=== PATIENT | female | born 1985 | race Caucasian/White ===

== ENCOUNTER → 2017-07-13 | Outpatient (CLI) | payer MEDICAID, SELFPAY | PROVIDERS: Visit Provider Internal Medicine | DX: M06.9 Rheumatoid arthritis, unspecified (principal); Z51.81 Encounter for therapeutic drug level monitoring | CPT/HCPCS: 36415; 80053; 85025; 85651 ==

== ENCOUNTER 2017-08-06 14:04 | Emergency (ER) | payer MEDICAID, SELFPAY | END 2017-08-06 14:28 | disposition left against medical advice (07) | PROVIDERS: Emergency Provider Nurse Practitioner Family; Family Provider Emergency Medicine; PCP Physician Assistant | DX: Z53.29 Procedure and treatment not carried out because of patient's decision for other reasons (principal) ==

== ENCOUNTER → 2017-08-25 12:31 | Outpatient (CLI) | payer MEDICAID, SELFPAY ==
[2017-08-25 15:52] LABS: Alanine Aminotransferase 56 U/L (12-78); Albumin Level 3.4 gm/dL (3.4-5.0); Albumin/Globulin Ratio 0.9 (1.1-1.8); Alkaline Phosphatase 107 U/L (46-116); Anion Gap 10.2 mEq/L (5-15); Aspartate Amino Transferase 31 U/L (15-37); Bilirubin,Total 0.2 mg/dL (0.2-1.0); Blood Urea Nitrogen 7 mg/dL (7-18); Calcium 8.5 mg/dL (8.5-10.1); Carbon Dioxide 28 mmol/L (21.0-32.0); Chloride 107 mmol/L (98-107); Creatinine,Serum 0.71 mg/dL (0.55-1.02); Estimated Glomerular Filt Rate 95 ml/min (>60); GFR (African American) 115 ML/MIN (>60); Globulin 3.6 gm/dl (1.3-3.2); Glucose 94 mg/dL (74-106); Potassium 4.2 mmoL/L (3.5-5.1); Sodium 141 mmol/L (136-145)
== END ==
PROVIDERS: PCP Physician Assistant; Visit Provider Internal Medicine
DX: Z79.899 Other long term (current) drug therapy (principal)
CPT/HCPCS: 36415; 80053

== ENCOUNTER → 2017-11-02 13:22 | Outpatient (REF) | payer MEDICAID, SELFPAY ==
[2017-11-02 14:18] LABS: Alanine Aminotransferase 29 U/L (12-78); Albumin Level 3.4 gm/dL (3.4-5.0); Albumin/Globulin Ratio 0.9 (1.1-1.8); Alkaline Phosphatase 116 U/L (46-116); Anion Gap 11.2 mEq/L (5-15); Aspartate Amino Transferase 16 U/L (15-37); Bilirubin,Total 0.3 mg/dL (0.2-1.0); Blood Urea Nitrogen 5 mg/dL (7-18); Calcium 8.7 mg/dL (8.5-10.1); Carbon Dioxide 28 mmol/L (21.0-32.0); Chloride 106 mmol/L (98-107); Chol/HDL Ratio 3.8 (1-3.5); Cholesterol 134 mg/dL (140-200); Estimated Glomerular Filt Rate 97 ml/min (>60); GFR (African American) 117 ML/MIN (>60); Globulin 3.7 gm/dl (1.3-3.2); Glucose 92 mg/dL (74-106); HDL Cholesterol 35 mg/dL (29-89); LDL Cholesterol 65 mg/dL (0-130); Potassium 4.2 mmoL/L (3.5-5.1); Sodium 141 mmol/L (136-145); T4 (Thyroxine) 7.7 ug/dl (4.7-13.3); Thyroid Stimulating Hormone 2.01 uIU/ml (0.358-3.740); Total Protein,Serum 7.1 gm/dL (6.4-8.2); Triglycerides 168 mg/dL (30-200); VLDL Cholesterol 34 mg/dL (0-40)
[2017-11-02 14:19] LABS: Basophils # 0.1 K/mm3 (0-0.2); Basophils % 0.6 % (0.1-2.0); Eosinophils # 0.2 K/mm3 (0.0-0.4); Hematocrit 39.6 % (37.0-47.0); Hemoglobin 12.9 g/dL (12.2-16.2); Lymphocytes % 25.9 K/mm3 (10-50); Mean Corpuscular HGB Conc 32.5 g/dL (31.8-35.4); Mean Corpuscular Hemoglobin 28.5 pg (27.0-31.2); Mean Corpuscular Volume 87.7 fl (81-99); Monocytes # 0.4 K/mm3 (0.1-1.0); Monocytes % 5.3 % (1.7-9.3); Neutrophils # 4.9 K/mm3 (1.8-7.8); Neutrophils % 65.2 % (37.0-80.0); Platelet Count 352 K/mm3 (142-424); Red Blood Count 4.52 M/mm3 (4.20-5.40); Red Cell Distribution Width 13.7 % (11.5-17.5); White Blood Count 7.6 K/mm3 (4.8-10.8)
[2017-11-03 11:04] LABS: Vitamin D 25 Hydroxy 29.3 ng/mL (30.0-100.0)
== END ==
LOC: LAB 13:22
PROVIDERS: Visit Provider Physician Assistant
DX: E03.9 Hypothyroidism, unspecified (principal)
CPT/HCPCS: 80053; 80061; 82652; 84436; 84443; 85025

== ENCOUNTER → 2017-12-20 13:55 | Outpatient (CLI) | payer MEDICAID, SELFPAY ==
[2017-12-20 14:21] LABS: Basophils # 0.1 K/mm3 (0-0.2); Basophils % 0.5 % (0.1-2.0); Eosinophils # 0.3 K/mm3 (0.0-0.4); Eosinophils % 2.3 % (0.1-12.0); Hematocrit 43.1 % (37.0-47.0); Hemoglobin 13.3 g/dL (12.2-16.2); Lymphocytes # 2.1 K/mm3 (0.7-4.5); Lymphocytes % 18.9 K/mm3 (10-50); Mean Corpuscular HGB Conc 30.8 g/dL (31.8-35.4); Mean Corpuscular Hemoglobin 27.1 pg (27.0-31.2); Mean Platelet Volume 7.2 fl (7.4-10.4); Monocytes # 0.5 K/mm3 (0.1-1.0); Monocytes % 4.5 % (1.7-9.3); Neutrophils % 73.8 % (37.0-80.0); Platelet Count 405 K/mm3 (142-424); Red Cell Distribution Width 13.8 % (11.5-17.5); White Blood Count 10.9 K/mm3 (4.8-10.8)
[2017-12-20 15:02] LABS: Erythrocyte Sedimentation Rate 20 mm/hr (0-20)
[2017-12-20 15:12] LABS: Alanine Aminotransferase 27 U/L (12-78); Albumin Level 3.2 gm/dL (3.4-5.0); Albumin/Globulin Ratio 0.8 (1.1-1.8); Alkaline Phosphatase 106 U/L (46-116); Anion Gap 11.6 mEq/L (5-15); Aspartate Amino Transferase 8 U/L (15-37); Bilirubin,Total 0.2 mg/dL (0.2-1.0); Blood Urea Nitrogen 7 mg/dL (7-18); C-Reactive Protein 1.2 mg/L (0.0-0.9); Calcium 8.6 mg/dL (8.5-10.1); Carbon Dioxide 28 mmol/L (21.0-32.0); Chloride 106 mmol/L (98-107); Estimated Glomerular Filt Rate 96 ml/min (>60); GFR (African American) 117 ML/MIN (>60); Globulin 3.9 gm/dl (1.3-3.2); Glucose 85 mg/dL (74-106); Potassium 4.6 mmoL/L (3.5-5.1); Sodium 141 mmol/L (136-145); Total Protein,Serum 7.1 gm/dL (6.4-8.2)
== END ==
PROVIDERS: Visit Provider Internal Medicine
DX: M54.9 Dorsalgia, unspecified (principal)
CPT/HCPCS: 36415; 80053; 85025; 85651; 86140

== ENCOUNTER → 2018-07-12 18:08 | Outpatient (CLI) | payer MEDICAID, SELFPAY ==
[2018-07-12 20:21] LABS: Thyroid Stimulating Hormone 1.57 uIU/ml (0.358-3.740)
[2018-07-18 20:14] LABS: 1,25-Dihydroxy, Vitamin D-2 <10 pg/mL (.)
[2018-07-19 14:45] LABS: 1,25 Dihydroxy Vitamin D 13 pg/mL (.); 1,25-Dihydroxy, Vitamin D-3 <10 pg/mL (.)
== END ==
PROVIDERS: Visit Provider Nurse Practitioner Family
DX: E55.9 Vitamin D deficiency, unspecified (principal); E03.9 Hypothyroidism, unspecified
CPT/HCPCS: 82652; 84443

== ENCOUNTER → 2019-12-06 15:45 | Outpatient (CLI) | payer MEDICAID, SELFPAY ==
[2019-12-06 16:36] LABS: Basophils # 0.1 K/mm3 (0-0.2); Basophils % 0.6 % (0.1-2.0); Eosinophils # 0.2 K/mm3 (0.0-0.4); Eosinophils % 1.5 % (0.1-12.0); Hematocrit 43.1 % (37.0-47.0); Hemoglobin 14.3 g/dL (12.2-16.2); Lymphocytes # 1.4 K/mm3 (0.7-4.5); Lymphocytes % 9.3 % (10-50); Mean Corpuscular HGB Conc 33.3 g/dL (31.8-35.4); Mean Corpuscular Hemoglobin 28.7 pg (27.0-31.2); Mean Corpuscular Volume 86.3 fl (81-99); Mean Platelet Volume 7.6 fl (7.4-10.4); Monocytes # 0.5 K/mm3 (0.1-1.0); Monocytes % 3.6 % (1.7-9.3); Neutrophils # 12.7 K/mm3 (1.8-7.8); Platelet Count 393 K/mm3 (142-424); Red Blood Count 4.99 M/mm3 (4.20-5.40); Red Cell Distribution Width 13.6 % (11.5-17.5); White Blood Count 14.9 K/mm3 (4.8-10.8)
[2019-12-06 16:38] LABS: MANUAL DIFFERENTIAL MANUAL DIFFERENTIAL (MANUAL DIFF)
[2019-12-06 17:21] LABS: Eosinophils % 1 % (0-3); Lymphocytes % 11 % (10-50); Monocytes % 2 % (2-9); Neutrophils % 84 % (42-76); Platelet Estimate Normal; RBC Morphology Normal; Total Cells Counted 100
[2019-12-06 18:20] LABS: Alanine Aminotransferase 25 U/L (12-78); Albumin Level 4.3 g/dl (3.5-5.0); Albumin/Globulin Ratio 1.3 (1.1-1.8); Alkaline Phosphatase 111 U/L (38-126); Anion Gap 10.2 mEq/L (5-15); Aspartate Amino Transferase 35 U/L (14-36); Bilirubin,Total 0.3 mg/dl (0.2-1.3); Blood Urea Nitrogen 7 mg/dl (7-17); Calcium 9.5 mg/dl (8.4-10.2); Carbon Dioxide 27 mmol/L (22.0-30.0); Chloride 104 mmol/L (98-107); Estimated Glomerular Filt Rate 95 ml/min (>60); GFR (African American) 115 ML/MIN (>60); Globulin 3.3 g/dL (1.3-3.2); Glucose 95 mg/dl (74-100); Potassium 4.2 mmoL/L (3.5-5.1); Sodium 137 mmol/L (136-145); Total Protein,Serum 7.6 g/dl (6.3-8.2)
== END ==
PROVIDERS: Visit Provider Internal Medicine
DX: Z79.899 Other long term (current) drug therapy (principal)
CPT/HCPCS: 36415; 80053; 85007; 85025

== ENCOUNTER 2020-03-04 16:25 | Emergency (ER) | payer MEDICAID, SELFPAY ==
--- NOTE | 2020-03-04 17:51 | HMH.EDUTC ---
[facility] Disposition Clinical Impression: Bronchitis, Viral syndrome Disposition: Home, Self-Care Condition on Discharge: Good Instructions: DI for Viral Syndrome, Preventing the Spread of Coronavirus Discharge Instructions Additional Instructions: Drink plenty of fluids. Take tylenol or ibuprofen for pain or fever. Take the medications as directed. Follow up with your regular doctor. GO TO THE ER FOR ANY WORSENING SYMPTOMS FOLLOW THE DIRECTIONS ON THE COVID-19 HAND OUT THAT WE GAVE YOU REGARDING SELF-ISOLATION UNTIL YOU KNOW YOUR COVID-19 RESULTS Prescriptions: Brompheniramine/Pseudoephed/Dm [Bromfed Dm Cough Syrup] 5 ml PO Q6HP PRN #240 syrup PRN Reason: Cough Transmission Status: Received by [facility] Azithromycin [Z-Angelito 250mg Tab*] 250 mg PO UD DOSE PK #6 tab Transmission Status: Received by [facility] Referrals: Sea Mascorro MD [Primary Care Provider] - Forms: Work/School Release Time of Disposition: 18:14 Medical Decision Making - Medical Records Medical records reviewed: No: I reviewed the patient's medical records. - Dwayne Inquiry Pt receiving controlled substance: No Vital Signs: 03/04/20 17:54 03/04/20 18:21 Temperature 98.2 F 98.2 F Temperature Source Oral Pulse Rate 75 Pulse Rate [Right Brachial] 75 Respiratory Rate 20 20 Blood Pressure 103/59 L Blood Pressure [Right Arm] 103/59 L Blood Pressure Mean [Right Arm] 73 Blood Pressure Source [Right Arm] Automatic Cuff Blood Pressure Position [Right Arm] Sitting 02 Sat by Pulse Oximetry 99 Oxygen Delivery Method Room Air - Lab Data Lab results reviewed: Yes: I reviewed the patient's lab results. [facility] HPI - General Stated complaint: covid symptoms Time Seen by Provider: 03/04/20 17:51 - History of Present Illness Provider Complaint: She c/o cough and congestion for the past 2 days. - Related Data Home Medications Medication Instructions Recorded Confirmed folic acid 1 mg tablet 1 mg PO DAILY tab 11/02/17 07/12/18 hydroxychloroquine 200 mg tablet 200 mg PO DAILY tab 11/02/17 07/12/18 methotrexate sodium 20 mg solution 2.5 mg .ROUTE QWEEK 11/02/17 07/12/18 for injection cetirizine 10 mg tablet PO 30 Days #30 tab 07/12/18 07/12/18 fluticasone propionate 50 INTRANASAL 30 Days #16 g 07/12/18 07/12/18 mcg/actuation nasal spray,suspension montelukast 10 mg tablet PO 30 Days #30 tab 07/12/18 07/12/18 Previous Rx's Medication Instructions Recorded cholecalciferol (vitamin D3) 25 1,000 unit PO DAILY #90 cap 07/23/18 mcg (1,000 unit) capsule ergocalciferol (vitamin D2) 1,250 50,000 unit PO QWEEK 90 Days #12 05/28/19 mcg (50,000 unit) capsule cap levothyroxine 25 mcg tablet 25 mcg PO DAILY #90 tab 02/07/20 Azithromycin [Z-Angelito 250mg Tab*] 250 mg PO UD DOSE PK #6 tab 03/04/20 Brompheniramine/Pseudoephed/Dm 5 ml PO Q6HP PRN #240 syrup 03/04/20 [Bromfed Dm Cough Syrup] Allergies Allergy/AdvReac Type Severity Reaction Status Date / Time codeine [CODEINE] Allergy Intermediate I-RASH Verified 07/12/18 13:41 penicillin G [PENICILLIN G] Allergy Intermediate I-HIVES Verified 07/12/18 13:41 [facility] History - Hepatitis A Screen Attestation statement:: This patient has been screened for Hepatitis A risk factors. I have reviewed the patient's past medical history: Yes Other Medical History: Reports: Arthritis, Hypothyroidism, Sinus Problems, Other Comment: THYROID ISSUES,SCOLIOSIS Other Surgeries: Yes: , Tubal Ligation Amputation: No Fractures: No - Social History Smoking Status: Former smoker Tobacco Type: cigarettes Alcohol Intake: never Substance Use Type: denies use Occupational Status: unemployed Housing: apartment Household Members: children, spouse Family Hx:: Cancer, Heart Attack, Diabetes ROS Obtained: Yes All systems reviewed & no additional complaints - Constitutional Constitutional: Reports chills, Reports fever(s), Reports poor ap
[2020-03-04 17:54] VITALS: BP 103/59; PULSE 75; RESP 20; TEMP 36.8; O2SAT 99; BMI 23.3
[2020-03-04 18:21] VITALS: BP 103/59; PULSE 75; RESP 20; TEMP 36.8; O2SAT 99
== END 2020-03-04 18:23 | disposition home or self-care (01) ==
PROVIDERS: Emergency Provider Nurse Practitioner Family; PCP Emergency Medicine
DX: J20.9 Acute bronchitis, unspecified (principal); B34.9 Viral infection, unspecified; Z20.828 Contact with and (suspected) exposure to other viral communicable diseases; E03.9 Hypothyroidism, unspecified; Z79.899 Other long term (current) drug therapy; Z87.891 Personal history of nicotine dependence; Z88.0 Allergy status to penicillin; Z88.5 Allergy status to narcotic agent
CPT/HCPCS: 99201; U0003

== ENCOUNTER → 2020-04-23 18:04 | Outpatient (CLI) | payer MEDICAID, SELFPAY ==
--- NOTE | 2020-04-23 18:15 | PC.NURSE ---
PATIENT STATES SHE TAKES HUMIRA. SPOKE WITH CORIE BRITO AT THIS TIME WHO VERIFIED THAT IT IS OK TO GIVE PATIENT TB SKIN TEST.
== END ==
PROVIDERS: PCP Physician Assistant; Visit Provider Nurse Practitioner
DX: Z11.1 Encounter for screening for respiratory tuberculosis (principal)

== ENCOUNTER 2020-06-07 14:19 | Emergency (ER) | payer MEDICAID, SELFPAY ==
[2020-06-07 14:20] VITALS: BP 101/72; PULSE 61; RESP 21; TEMP 36.8; O2SAT 99; BMI 30.2
--- NOTE | 2020-06-07 14:41 | HMH.EDUTC ---
[facility] Disposition Clinical Impression: Otitis media Qualifiers: Otitis media type: suppurative Chronicity: acute Laterality: bilateral Recurrence: non-recurrent Spontaneous tympanic membrane rupture: without spontaneous rupture Qualified Code(s): H66.003 - Acute suppurative otitis media without spontaneous rupture of ear drum, bilateral Disposition: Home, Self-Care Condition on Discharge: Good Instructions: How to Instill Ear Drops, Middle Ear Infection Additional Instructions: Drink plenty of fluids. Take tylenol or ibuprofen for pain or fever. Take the medications as directed. Follow up with your regular doctor for a recheck of your ears in 3 days. GO TO THE ER FOR ANY WORSENING SYMPTOMS Prescriptions: Neomycin/Polymyxin B Sulf/Hc [Npjqmqzd-Lgvjvgfno-MA Otic Susp 10mL] 3 drops EAR-BOTH TID 7 Days #1 bottle Transmission Status: Received by [facility] Azithromycin [Z-Angelito 250mg Tab*] 250 mg PO UD DOSE PK #6 tab Transmission Status: Received by [facility] Referrals: Ilana Ireland PA [Primary Care Provider] - Time of Disposition: 14:44 Medical Decision Making - Medical Records Medical records reviewed: No: I reviewed the patient's medical records. - Dwayne Inquiry Pt receiving controlled substance: No Vital Signs: 06/07/20 14:20 06/07/20 14:46 Temperature 98.3 F 98.3 F Temperature Source Oral Pulse Rate 61 Pulse Rate [Right Brachial] 61 Respiratory Rate 21 21 Blood Pressure 101/72 L Blood Pressure [Right Arm] 101/72 L Blood Pressure Mean [Right Arm] 81 Blood Pressure Source [Right Arm] Automatic Cuff Blood Pressure Position [Right Arm] Sitting 02 Sat by Pulse Oximetry 99 Oxygen Delivery Method Room Air [facility] HPI - General Stated complaint: ear pain, dizzy Time Seen by Provider: 06/07/20 14:41 Mode of Arrival: Ambulatory Source of Information: Patient Limitations: No Limitations Description of Symptoms (Recalled from Triage Doc. by RN): PATIENT C/O LEFT EAR PAIN, HEADACHE, AND DIZZINESS X 2 WEEKS HEENT Symptoms (Recalled from RN notes): Yes Resp Symptoms (Recalled from RN notes): No Skin Symptoms (Recalled from RN notes): No MS Symptoms (Recalled from RN notes): No Functional Status (Recalled from RN notes): WNL - History of Present Illness Provider Complaint: She c/o bilateral ear pain and fullness and sinus congestion. She has been having these symptoms for the past 2 weeks on and off. She denies fever, chills, body aches, decreased hearing and body aches. - Related Data Home Medications Medication Instructions Recorded Confirmed folic acid 1 mg tablet 1 mg PO DAILY tab 11/02/17 07/12/18 hydroxychloroquine 200 mg tablet 200 mg PO DAILY tab 11/02/17 07/12/18 methotrexate sodium 20 mg solution 2.5 mg .ROUTE QWEEK 11/02/17 07/12/18 for injection cetirizine 10 mg tablet PO 30 Days #30 tab 07/12/18 07/12/18 fluticasone propionate 50 INTRANASAL 30 Days #16 g 07/12/18 07/12/18 mcg/actuation nasal spray,suspension montelukast 10 mg tablet PO 30 Days #30 tab 07/12/18 07/12/18 Previous Rx's Medication Instructions Recorded cholecalciferol (vitamin D3) 25 1,000 unit PO DAILY #90 cap 07/23/18 mcg (1,000 unit) capsule ergocalciferol (vitamin D2) 1,250 50,000 unit PO QWEEK 90 Days #12 05/28/19 mcg (50,000 unit) capsule cap levothyroxine 25 mcg tablet 25 mcg PO DAILY #90 tab 02/07/20 Azithromycin [Z-Angelito 250mg Tab*] 250 mg PO UD DOSE PK #6 tab 03/04/20 Brompheniramine/Pseudoephed/Dm 5 ml PO Q6HP PRN #240 syrup 03/04/20 [Bromfed Dm Cough Syrup] Azithromycin [Z-Angelito 250mg Tab*] 250 mg PO UD DOSE PK #6 tab 06/07/20 Neomycin/Polymyxin B Sulf/Hc 3 drops EAR-BOTH TID 7 Days #1 06/07/20 [Pwrxxrex-Wyzlkdchc-HM Otic Susp bottle 10mL] Allergies Allergy/AdvReac Type Severity Reaction Status Date / Time codeine [CODEINE] Allergy Intermediate I-RASH Verified 07/12/18 13:41 penicillin G [PENICILLIN G] Allergy Intermediate I-HIVES Verifie
[2020-06-07 14:46] VITALS: BP 101/72; PULSE 61; RESP 21; TEMP 36.8; O2SAT 99
== END 2020-06-07 14:50 | disposition home or self-care (01) ==
PROVIDERS: Emergency Provider Nurse Practitioner Family; PCP Physician Assistant
DX: H66.003 Acute suppurative otitis media without spontaneous rupture of ear drum, bilateral (principal); E03.9 Hypothyroidism, unspecified; Z79.899 Other long term (current) drug therapy; Z88.0 Allergy status to penicillin; Z88.5 Allergy status to narcotic agent
CPT/HCPCS: 99201

== ENCOUNTER 2020-06-14 10:29 | Emergency (ER) | payer MEDICAID, SELFPAY ==
[2020-06-14 11:06] VITALS: BP 102/50; PULSE 61; RESP 18; TEMP 36.7; O2SAT 98; BMI 30.2
--- NOTE | 2020-06-14 11:23 | HMH.EDUTC ---
[facility] [place] [facility] Disposition Clinical Impression: Impacted cerumen of both ears Disposition: Home, Self-Care Condition on Discharge: Good Instructions: DI for Cerumen Impaction Prescriptions: Carbamide Peroxide [Debrox] 5 drp OT TID 10 Days #1 drops Transmission Status: Pending to [facility] Referrals: Ilana Ireland PA [Primary Care Provider] - Forms: Work/School Release Time of Disposition: 11:28 Medical Decision Making - Dwayne Inquiry Pt receiving controlled substance: No Vital Signs: 06/14/20 11:06 Temperature 98.0 F Temperature Source Oral Pulse Rate [Radial] 61 Respiratory Rate 18 Blood Pressure [Right Arm] 102/50 L Blood Pressure Mean [Right Arm] 67 Blood Pressure Source [Right Arm] Automatic Cuff Blood Pressure Position [Right Arm] Sitting 02 Sat by Pulse Oximetry 98 Oxygen Delivery Method Room Air [facility] [place] HPI - General Stated complaint: Ears stopped up Time Seen by Provider: 06/14/20 11:26 Mode of Arrival: Ambulatory Source of Information: Patient Limitations: No Limitations Description of Symptoms (Recalled from Triage Doc. by RN): both ears are stopped up. cant hear. HEENT Symptoms (Recalled from RN notes): Yes Resp Symptoms (Recalled from RN notes): No Skin Symptoms (Recalled from RN notes): No MS Symptoms (Recalled from RN notes): No Functional Status (Recalled from RN notes): wnl - History of Present Illness Provider Complaint: Left ear stopped up and can't hear X 5 days. No right ear is also stopped up. Cannot hear. No fever. Onset (ago): day(s) (5) Relieving factors: none Exacerbating factors: none Treatments prior to arrival: none - Related Data Home Medications Medication Instructions Recorded Confirmed folic acid 1 mg tablet 1 mg PO DAILY tab 11/02/17 07/12/18 hydroxychloroquine 200 mg tablet 200 mg PO DAILY tab 11/02/17 07/12/18 methotrexate sodium 20 mg solution 2.5 mg .ROUTE QWEEK 11/02/17 07/12/18 for injection cetirizine 10 mg tablet PO 30 Days #30 tab 07/12/18 07/12/18 fluticasone propionate 50 INTRANASAL 30 Days #16 g 07/12/18 07/12/18 mcg/actuation nasal spray,suspension montelukast 10 mg tablet PO 30 Days #30 tab 07/12/18 07/12/18 Previous Rx's Medication Instructions Recorded cholecalciferol (vitamin D3) 25 1,000 unit PO DAILY #90 cap 07/23/18 mcg (1,000 unit) capsule ergocalciferol (vitamin D2) 1,250 50,000 unit PO QWEEK 90 Days #12 05/28/19 mcg (50,000 unit) capsule cap levothyroxine 25 mcg tablet 25 mcg PO DAILY #90 tab 02/07/20 Azithromycin [Z-Angelito 250mg Tab*] 250 mg PO UD DOSE PK #6 tab 03/04/20 Brompheniramine/Pseudoephed/Dm 5 ml PO Q6HP PRN #240 syrup 03/04/20 [Bromfed Dm Cough Syrup] Azithromycin [Z-Angelito 250mg Tab*] 250 mg PO UD DOSE PK #6 tab 06/07/20 Neomycin/Polymyxin B Sulf/Hc 3 drops EAR-BOTH TID 7 Days #1 06/07/20 [Ahgiwfnm-Ttdjnvunm-QF Otic Susp bottle 10mL] Carbamide Peroxide [Debrox] 5 drp OT TID 10 Days #1 drops 06/14/20 Allergies Allergy/AdvReac Type Severity Reaction Status Date / Time codeine [CODEINE] Allergy Intermediate I-RASH Verified 07/12/18 13:41 penicillin G [PENICILLIN G] Allergy Intermediate I-HIVES Verified 07/12/18 13:41 - Worker's Comp Is this a Worker's Comp case?: No [facility] History - Hepatitis A Screen Drug use history?: No High risk sexual behaviors?: No History of sexually transmitted infection?: No Currently employed?: No Childcare worker?: No Do you have indoor plumbing?: Yes Do you have electricity?: Yes Attestation statement:: This patient has been screened for Hepatitis A risk factors. I have reviewed the patient's past medical history: Yes Other Medical History: Reports: Arthritis, Hypothyroidism, Sinus Problems, Other Comment: THYROID ISSUES,SCOLIOSIS Other Surgeries: Yes: , Tubal Ligation Amputation: No Fractures: No - Social History Smoking Status: Former smoker Tobacco Type: cigarettes Alcohol Intake: never Substance Use Type: denies use Occup
[2020-06-14 12:05] VITALS: BP 102/50; PULSE 61; RESP 18; TEMP 36.7; O2SAT 98
== END 2020-06-14 12:06 | disposition home or self-care (01) ==
PROVIDERS: Emergency Provider Physician Assistant; PCP Physician Assistant
DX: E03.9 Hypothyroidism, unspecified; Z88.0 Allergy status to penicillin; Z88.5 Allergy status to narcotic agent; Z87.891 Personal history of nicotine dependence
CPT/HCPCS: 99201

== ENCOUNTER → 2020-08-24 17:49 | Outpatient (CLI) | payer MEDICAID, SELFPAY ==
[2020-08-24 18:07] LABS: Basophils # 0.1 K/mm3 (0-0.2); Basophils % 0.4 % (0.1-2.0); Eosinophils # 0.3 K/mm3 (0.0-0.4); Eosinophils % 2.4 % (0.1-12.0); Hematocrit 42.9 % (37.0-47.0); Lymphocytes # 2.2 K/mm3 (0.7-4.5); Lymphocytes % 19.6 % (10-50); Mean Corpuscular HGB Conc 32.5 g/dL (31.8-35.4); Mean Corpuscular Hemoglobin 28.7 pg (27.0-31.2); Mean Corpuscular Volume 88.3 fl (81-99); Mean Platelet Volume 7.8 fl (7.4-10.4); Monocytes # 0.6 K/mm3 (0.1-1.0); Monocytes % 5.3 % (1.7-9.3); Neutrophils % 72.4 % (37.0-80.0); Platelet Count 353 K/mm3 (142-424); Red Blood Count 4.86 M/mm3 (4.20-5.40); Red Cell Distribution Width 12.6 % (11.5-17.5)
[2020-08-24 19:09] LABS: Alanine Aminotransferase 23 U/L (12-78); Albumin Level 4.3 g/dl (3.5-5.0); Albumin/Globulin Ratio 1.2 (1.1-1.8); Alkaline Phosphatase 88 U/L (38-126); Anion Gap 11.1 mEq/L (5-15); Aspartate Amino Transferase 24 U/L (14-36); Bilirubin,Total 0.3 mg/dl (0.2-1.3); Blood Urea Nitrogen 8 mg/dl (7-17); Calcium 9.5 mg/dl (8.4-10.2); Carbon Dioxide 29 mmol/L (22.0-30.0); Chloride 103 mmol/L (98-107); Estimated Glomerular Filt Rate 95 ml/min (>60); GFR (African American) 115 ML/MIN (>60); Globulin 3.6 g/dL (1.3-3.2); Glucose 94 mg/dl (74-100); Potassium 4.1 mmoL/L (3.5-5.1); Sodium 139 mmol/L (136-145); Total Protein,Serum 7.9 g/dl (6.3-8.2)
[2020-08-24 19:15] LABS: C-Reactive Protein 11.9 mg/L (0-4)
[2020-08-24 19:20] LABS: Erythrocyte Sedimentation Rate 15 mm/hr (0-20)
== END ==
PROVIDERS: Visit Provider Nurse Practitioner Family
DX: M06.9 Rheumatoid arthritis, unspecified (principal)
CPT/HCPCS: 36415; 80053; 85025; 85651; 86140

== ENCOUNTER 2021-01-25 18:08 | Emergency (ER) | payer MEDICAID, SELFPAY ==
[2021-01-25 18:10] VITALS: BP 109/71; PULSE 67; RESP 18; TEMP 36.9; O2SAT 100; BMI 31.4
--- NOTE | 2021-01-25 19:24 | HMH.EDUTC ---
[facility] [place] Disposition Clinical Impression: Sinusitis Qualifiers: Sinusitis location: unspecified location Chronicity: acute Recurrence: non-recurrent Qualified Code(s): J01.90 - Acute sinusitis, unspecified Disposition: Home, Self-Care Condition on Discharge: Good Instructions: DI for Sinusitis Additional Instructions: Drink plenty of fluids. Take tylenol or ibuprofen for pain or fever. Take the medications as directed. Follow up with your regular doctor. GO TO THE ER FOR ANY WORSENING SYMPTOMS Prescriptions: methylPREDNISolone [Medrol] 4 mg PO DIRECTED 6 Days #21 tab.ds.pk Transmission Status: Received by [facility] Benzonatate [Tessalon Perle 100mg Cap] 100 mg PO TIDP PRN #30 cap PRN Reason: Cough Transmission Status: Received by [facility] Azithromycin [Z-Angelito 250mg Tab*] 250 mg PO UD DOSE PK #6 tab Transmission Status: Received by [facility] Referrals: Ilana Ireland PA [Primary Care Provider] - Time of Disposition: 19:26 Medical Decision Making - Medical Records Medical records reviewed: No: I reviewed the patient's medical records. - Dwayne Inquiry Pt receiving controlled substance: No Vital Signs: 01/25/21 18:10 01/25/21 19:29 Temperature 98.5 F 98.5 F Temperature Source Oral Pulse Rate 67 Pulse Rate [Right Brachial] 67 Respiratory Rate 18 18 Blood Pressure 109/71 L Blood Pressure [Right Arm] 109/71 L Blood Pressure Mean [Right Arm] 83 Blood Pressure Source [Right Arm] Automatic Cuff Blood Pressure Position [Right Arm] Sitting 02 Sat by Pulse Oximetry 100 Oxygen Delivery Method Room Air [facility] [place] HPI - General Stated complaint: HEAD CONGESTION Time Seen by Provider: 01/25/21 18:20 Mode of Arrival: Ambulatory Source of Information: Patient Limitations: No Limitations Description of Symptoms (Recalled from Triage Doc. by RN): PATIENT C/O SINUS PRESSURE, CONGESTION, AND LEFT EAR PAIN X 3 DAYS HEENT Symptoms (Recalled from RN notes): Yes Resp Symptoms (Recalled from RN notes): No Skin Symptoms (Recalled from RN notes): No MS Symptoms (Recalled from RN notes): No Functional Status (Recalled from RN notes): WNL - History of Present Illness Provider Complaint: She c/o sinus pressure and sinus congestion for the past days. - Related Data Home Medications Medication Instructions Recorded Confirmed folic acid 1 mg tablet 1 mg PO DAILY tab 11/02/17 07/12/18 hydroxychloroquine 200 mg tablet 200 mg PO DAILY tab 11/02/17 07/12/18 methotrexate sodium 20 mg solution 2.5 mg .ROUTE QWEEK 11/02/17 07/12/18 for injection cetirizine 10 mg tablet PO 30 Days #30 tab 07/12/18 07/12/18 fluticasone propionate 50 INTRANASAL 30 Days #16 g 07/12/18 07/12/18 mcg/actuation nasal spray,suspension montelukast 10 mg tablet PO 30 Days #30 tab 07/12/18 07/12/18 Previous Rx's Medication Instructions Recorded cholecalciferol (vitamin D3) 25 1,000 unit PO DAILY #90 cap 07/23/18 mcg (1,000 unit) capsule ergocalciferol (vitamin D2) 1,250 50,000 unit PO QWEEK 90 Days #12 05/28/19 mcg (50,000 unit) capsule cap levothyroxine 25 mcg tablet 25 mcg PO DAILY #90 tab 02/07/20 Azithromycin [Z-Angelito 250mg Tab*] 250 mg PO UD DOSE PK #6 tab 03/04/20 Brompheniramine/Pseudoephed/Dm 5 ml PO Q6HP PRN #240 syrup 03/04/20 [Bromfed Dm Cough Syrup] Azithromycin [Z-Angelito 250mg Tab*] 250 mg PO UD DOSE PK #6 tab 06/07/20 Neomycin/Polymyxin B Sulf/Hc 3 drops EAR-BOTH TID 7 Days #1 06/07/20 [Bcxmayhq-Pcpthdizl-ES Otic Susp bottle 10mL] Carbamide Peroxide [Debrox] 5 drp OT TID 10 Days #1 drops 06/14/20 Azithromycin [Z-Angelito 250mg Tab*] 250 mg PO UD DOSE PK #6 tab 01/25/21 Benzonatate [Tessalon Perle 100mg 100 mg PO TIDP PRN #30 cap 01/25/21 Cap] methylPREDNISolone [Medrol] 4 mg PO DIRECTED 6 Days #21 01/25/21 tab.ds.pk Allergies Allergy/AdvReac Type Severity Reaction Status Date / Time codeine [CODEINE] Allergy Intermediate I-RASH Verified
[2021-01-25 19:29] VITALS: BP 109/71; PULSE 67; RESP 18; TEMP 36.9; O2SAT 100
== END 2021-01-25 19:32 | disposition home or self-care (01) ==
PROVIDERS: Emergency Provider Nurse Practitioner Family; PCP Physician Assistant
DX: J01.90 Acute sinusitis, unspecified (principal); Z87.891 Personal history of nicotine dependence

== ENCOUNTER 2021-02-25 17:51 | Emergency (ER) | payer MEDICAID, SELFPAY ==
[2021-02-25 17:52] VITALS: BP 108/75; PULSE 56; RESP 21; TEMP 37; O2SAT 97; BMI 30.9
--- NOTE | 2021-02-25 18:54 | HMH.EDUTC ---
[facility] [place] Disposition Clinical Impression: Exposure to COVID-19 virus Disposition: Home, Self-Care Condition on Discharge: Good Instructions: DI for COVID-19 (Suspected or Confirmed ), Coronavirus Disease 2019, Preventing the Spread of Coronavirus Discharge Instructions Additional Instructions: *Monitor Temp, Over the counter Motrin or Tylenol as directed/as needed Tylenol every 4 hours and Motrin every 6 hours (as long as your family doctor has told you that you can take it) for fever or pain. and straight to ER if unable to lower temp less than 101.0 after medication given *Warm salt water gargles may help to soothe the throat *Throat Lozenges *Warm fluids like tea with honey may help to soothe the throat *Sleep elevated *Humidifier/Vaporizer Follow up IMMEDIATELY for new or worsening symptoms or no Noticeable improvement over the next 48-72 hours. 911 for difficulty breathing or swallowing Over the counter Robitussin may help with cough if you can take it You were tested for today for COVID19 your test result should be back in the next 24-48 hours, you may call to the [facility] to see if your test results are back in the next 48 hours [phone] [facility] hours are 9am-9pm You was given a handout with instructions for Self Quarantine and Self isolation for while you wait on test results and what to do if they are positive If you are positive the Health Dept will be contacting you also Make sure to take your Vitamins Vit. C Vit D and Zinc if you can take them Referrals: Ilana Ireland PA [Primary Care Provider] - As needed Forms: Work/School Release Time of Disposition: 18:56 Medical Decision Making - Dwayne Inquiry Pt receiving controlled substance: No Dwayne was queried for this patient: No Vital Signs: 02/25/21 17:52 Temperature 98.6 F Temperature Source Oral Pulse Rate [Left Radial] 56 L Respiratory Rate 21 Blood Pressure [Right Arm] 108/75 L Blood Pressure Mean [Right Arm] 86 Blood Pressure Source [Right Arm] Automatic Cuff Blood Pressure Position [Right Arm] Sitting 02 Sat by Pulse Oximetry 97 Oxygen Delivery Method Room Air Orders (Tests/Meds): ORDERS Category Date Time Status Covid-19 Nasal PCR ([facility]) Routine Lab 02/25/21 18:[address] [facility] [place] HPI - General Stated complaint: covid test Time Seen by Provider: 02/25/21 18:54 Mode of Arrival: Ambulatory Source of Information: Patient Limitations: No Limitations Description of Symptoms (Recalled from Triage Doc. by RN): covid test, exposure, cough since today HEENT Symptoms (Recalled from RN notes): No Resp Symptoms (Recalled from RN notes): Yes (cough) Skin Symptoms (Recalled from RN notes): No MS Symptoms (Recalled from RN notes): No Functional Status (Recalled from RN notes): na - History of Present Illness Provider Complaint: Patient states that she was around her mother in law over the weekend and she tested positive for COVID on Monday States that she has had a cough ever since and wanted to get tested - Related Data Home Medications Medication Instructions Recorded Confirmed folic acid 1 mg tablet 1 mg PO DAILY tab 11/02/17 07/12/18 hydroxychloroquine 200 mg tablet 200 mg PO DAILY tab 11/02/17 07/12/18 methotrexate sodium 20 mg solution 2.5 mg .ROUTE QWEEK 11/02/17 07/12/18 for injection cetirizine 10 mg tablet PO 30 Days #30 tab 07/12/18 07/12/18 fluticasone propionate 50 INTRANASAL 30 Days #16 g 07/12/18 07/12/18 mcg/actuation nasal spray,suspension montelukast 10 mg tablet PO 30 Days #30 tab 07/12/18 07/12/18 Previous Rx's Medication Instructions Recorded cholecalciferol (vitamin D3) 25 1,000 unit PO DAILY #90 cap 07/23/18 mcg (1,000 unit) capsule ergocalciferol (vitamin D2) 1,250 50,000 unit PO QWEEK 90 Days #12 05/28/19 mcg (50,000 unit) capsule cap levothyroxine 25 mcg tablet 25 mcg PO DAILY #90 tab 02/07/20 Azithromycin [Z-Angelito 250mg Tab*] 250 mg PO UD DOSE PK #6 tab 03/04/20 Brompheniramine/Pseudo
[2021-02-25 19:29] VITALS: BP 108/75; PULSE 56; RESP 21; TEMP 37; O2SAT 97
== END 2021-02-25 19:34 | disposition home or self-care (01) ==
PROVIDERS: Emergency Provider Nurse Practitioner; PCP Physician Assistant
DX: Z20.822 Contact with and (suspected) exposure to COVID-19 (principal); E03.9 Hypothyroidism, unspecified; Z87.891 Personal history of nicotine dependence; Z88.0 Allergy status to penicillin; Z88.5 Allergy status to narcotic agent
CPT/HCPCS: 99202; G0463; U0003

== ENCOUNTER → 2021-04-28 09:15 | Outpatient (CLI) | payer MEDICAID, SELFPAY | PROVIDERS: PCP Physician Assistant; Visit Provider Nurse Practitioner | DX: Z20.822 Contact with and (suspected) exposure to COVID-19 (principal); U07.1 COVID-19 | CPT/HCPCS: C9803; U0003; U0005 ==

== ENCOUNTER → 2021-05-10 13:16 | Outpatient (CLI) | payer MEDICAID, SELFPAY | PROVIDERS: PCP Physician Assistant; Visit Provider Nurse Practitioner | DX: Z20.822 Contact with and (suspected) exposure to COVID-19 (principal); U07.1 COVID-19 | CPT/HCPCS: C9803; U0003; U0005 ==

== ENCOUNTER → 2021-07-23 19:30 | Outpatient (CLI) | payer OTHER, SELFPAY ==
[2021-07-23 19:33] LABS: Adenovirus,PCR Not Detected (NotDetected); Bordetella Pertussis Not Detected (NotDetected); Chlamydophila Pneumoniae, PCR Not Detected (NotDetected); Coronavirus 19, PCR Not Detected (NotDetected); Coronavirus 229E Not Detected (NotDetected); Coronavirus NL63 Not Detected (NotDetected); Coronavirus OC43 Not Detected (NotDetected); Coronovirus HKU1,PCR Not Detected (NotDetected); Human Metapneumovirus Not Detected (NotDetected); Influenza A, PCR Not Detected (NotDetected); Influenza AH1, 2009 Not Detected (NotDetected); Influenza AH1, PCR Not Detected (NotDetected); Influenza AH3,PCR Not Detected (NotDetected); Influenza B, PCR Not Detected (NotDetected); Mycoplasma Pneumoniae, PCR Not Detected (NotDetected); Parainfluenza 1, PCR Not Detected (NotDetected); Parainfluenza 2, PCR Not Detected (NotDetected); Parainfluenza 3, PCR Not Detected (NotDetected); Parainfluenza 4, PCR Not Detected (NotDetected); Respiratory Syncytial Virus Not Detected (NotDetected); Rhinovirus/Enterovirus Not Detected (NotDetected)
== END ==
PROVIDERS: Visit Provider Nurse Practitioner Family
DX: Z20.822 Contact with and (suspected) exposure to COVID-19 (principal); J02.9 Acute pharyngitis, unspecified
CPT/HCPCS: 87581; 87632; 87798; C9803; U0003; U0005

== ENCOUNTER 2021-12-17 09:05 | Emergency (ER) | payer OTHER, SELFPAY ==
--- NOTE | 2021-12-17 09:44 | HMH.EDUTC ---
[facility] [place] Disposition Clinical Impression: Exposure to COVID-19 virus, Bronchitis, Viral syndrome Disposition: Home, Self-Care Condition on Discharge: Good Instructions: DI for COVID-19 (Suspected or Confirmed ), Preventing the Spread of Coronavirus Discharge Instructions Additional Instructions: Drink plenty of fluids. Take tylenol for pain or fever. Return if you begin to have difficulty breathing. Follow up with your regular doctor. GO TO THE ER FOR ANY WORSENING SYMPTOMS Quarantine until you know the results of your covid-19 test. If it is positive, the health department should call you and give you further instructions about your length of Quarantine and other things. Notify your school or workplace of your results and follow their instructions regarding return to work/school. Prescriptions: Benzonatate [Benzonatate 100mg cap] 100 mg PO TIDP PRN #30 cap PRN Reason: Cough [facility]: [facility] methylPREDNISolone [Medrol] 4 mg PO DIRECTED 6 Days #21 packet Transmission Status: [facility] Azithromycin [Z-Angelito 250mg Tab*] 250 mg PO UD DOSE PK #6 tab Transmission Status: Received by [facility] Referrals: Ilana Ireland PA [Primary Care Provider] - Forms: Work/School Release Time of Disposition: 09:45 Medical Decision Making - Medical Records Medical records reviewed: No: I reviewed the patient's medical records. - Dwayne Inquiry Pt receiving controlled substance: No Vital Signs: 12/17/21 09:54 12/17/21 10:01 Temperature 97.7 F 97.7 F Temperature Source Oral Pulse Rate 65 Pulse Rate [Left Radial] 65 Respiratory Rate 16 16 Blood Pressure 108/67 L Blood Pressure [Right Arm] 108/67 L Blood Pressure Mean [Right Arm] 80 02 Sat by Pulse Oximetry 95 - Lab Data Lab results reviewed: Yes: I reviewed the patient's lab results. Orders (Tests/Meds): ORDERS Category Date Time Status Covid-19 Nasal PCR ([facility]) Routine Lab 12/17/21 09:44 Received [facility] [place] HPI - General Stated complaint: covid test/exposure Time Seen by Provider: 12/17/21 09:55 - History of Present Illness Provider Complaint: She states that she was exposed to covd-19 by her currently having it at their home. He has had body aches, a nonproductive cough and she has felt bad for the past 2 days. She denies any chest pain and shortness of breath. - Related Data Home Medications Medication Instructions Recorded Confirmed fluticasone propionate 50 INTRANASAL 30 Days #16 g 07/12/18 07/23/21 mcg/actuation nasal spray,suspension montelukast 10 mg tablet PO 30 Days #30 tab 07/12/18 07/23/21 Previous Rx's Medication Instructions Recorded Azithromycin [Z-Angelito 250mg Tab*] 250 mg PO UD DOSE PK #6 tab 12/17/21 Benzonatate [Benzonatate 100mg 100 mg PO TIDP PRN #30 cap 12/17/21 cap] methylPREDNISolone [Medrol] 4 mg PO DIRECTED 6 Days #21 12/17/21 packet Allergies Allergy/AdvReac Type Severity Reaction Status Date / Time codeine [CODEINE] Allergy Intermediate I-RASH Verified 12/17/21 09:57 penicillin G [PENICILLIN G] Allergy Intermediate I-HIVES Verified 12/17/21 09:57 [facility] History - Hepatitis A Screen Attestation statement:: This patient has been screened for Hepatitis A risk factors. I have reviewed the patient's past medical history: Yes Medical History: Reports:: Asthma Other Medical History: Reports: Arthritis, Hypothyroidism, Sinus Problems, Other Comment: THYROID ISSUES,SCOLIOSIS Other Surgeries: Yes: , Dilation and Curettage, Tubal Ligation Amputation: No Fractures: No - Social History Smoking Status: Former smoker Tobacco Type: cigarettes Alcohol Intake: never Substance Use Type: denies use Occupational Status: other Housing: apartment Household Members: children, spouse Family Hx:: Cancer, Heart Attack, Diabetes ROS Obtained: Yes All systems reviewed & no additional compl
[2021-12-17 09:54] VITALS: BP 108/67; PULSE 65; RESP 16; TEMP 36.5; O2SAT 95; BMI 30.9
[2021-12-17 10:01] VITALS: BP 108/67; PULSE 65; RESP 16; TEMP 36.5
== END 2021-12-17 10:02 | disposition home or self-care (01) ==
PROVIDERS: Emergency Provider Nurse Practitioner Family; PCP Physician Assistant
DX: U07.1 COVID-19 (principal); J20.8 Acute bronchitis due to other specified organisms; Z88.0 Allergy status to penicillin; Z88.6 Allergy status to analgesic agent; J45.909 Unspecified asthma, uncomplicated
CPT/HCPCS: 99212; C9803; G0463; U0003; U0005

== ENCOUNTER 2021-12-24 17:15 | Emergency (ER) | payer OTHER, SELFPAY ==
[2021-12-24 17:25] VITALS: BP 114/72; PULSE 69; RESP 22; TEMP 36.7; O2SAT 99; BMI 25.7
--- NOTE | 2021-12-24 17:40 | HMH.EDUTC ---
[facility] [place] Disposition Clinical Impression: COVID-19 Disposition: Home, Self-Care Condition on Discharge: Good Instructions: DI for COVID-19 (Suspected or Confirmed ), Preventing the Spread of Coronavirus Discharge Instructions Additional Instructions: Drink plenty of fluids. Take tylenol or ibuprofen for pain or fever. Take the medications as directed. Follow up with your regular doctor. GO TO THE ER FOR ANY WORSENING SYMPTOMS The cough medication (promethazine dm) will make you drowsy, so don't drive or operate heavy machinery after taking it. Prescriptions: Albuterol Sulfate [Albuterol Sulfate Hfa] 2 puffs IH Q6HP PRN 30 Days #1 each PRN Reason: Shortness Of Breath [facility] Promethazine/Dextromethorphan [Promethazine-Dm Syrup] 5 ml PO Q6HP PRN #240 ml PRN Reason: Cough Transmission Status[facility] Referrals: Ilana Ireland PA [Primary Care Provider] - Forms: Work/School Release Time of Disposition: 18:26 Medical Decision Making - Medical Records Medical records reviewed: No: I reviewed the patient's medical records. - Dwayne Inquiry Pt receiving controlled substance: No Vital Signs: 12/24/21 17:25 Temperature 98.1 F Temperature Source Oral Pulse Rate [Right Brachial] 69 Respiratory Rate 22 Blood Pressure [Right Arm] 114/72 Blood Pressure Mean [Right Arm] 86 Blood Pressure Source [Right Arm] Automatic Cuff Blood Pressure Position [Right Arm] Sitting 02 Sat by Pulse Oximetry 99 Oxygen Delivery Method Room Air - Lab Data Lab Results 12/24/21 17:37: Group A Strep Rapid Negative Orders (Tests/Meds): ORDERS Category Date Time Status Chest XR 2 view (NOT portable) [XR chest 2V] Stat Exams 12/24/21 17:41 Taken Strep Screen Confirmation Stat Micro 12/24/21 17:37 Received [facility] [place] HPI - General Stated complaint: Covid+ Cough,Head Congestion Time Seen by Provider: 12/24/21 17:40 Mode of Arrival: Ambulatory Source of Information: Patient Limitations: No Limitations Description of Symptoms (Recalled from Triage Doc. by RN): PATIENT C/O SINUS PRESSURE. REPORTS BEING DIAGNOSED WITH COVID ON MONDAY HEENT Symptoms (Recalled from RN notes): Yes Resp Symptoms (Recalled from RN notes): No Skin Symptoms (Recalled from RN notes): No MS Symptoms (Recalled from RN notes): No Functional Status (Recalled from RN notes): WNL - History of Present Illness Provider Complaint: She tested positive for covid-19 1 week ago. She states that over the past 2 days she has started to have worsening chest congestion and a productive cough with yellowish sputum. - Related Data Previous Rx's Medication Instructions Recorded Albuterol Sulfate [Albuterol 2 puffs IH Q6HP PRN 30 Days #1 each 12/24/21 Sulfate Hfa] Promethazine/Dextromethorphan 5 ml PO Q6HP PRN #240 ml 12/24/21 [Promethazine-Dm Syrup] Allergies Allergy/AdvReac Type Severity Reaction Status Date / Time codeine [CODEINE] Allergy Intermediate I-RASH Verified 12/17/21 09:57 penicillin G [PENICILLIN G] Allergy Intermediate I-HIVES Verified 12/17/21 09:57 - Worker's Comp Is this a Worker's Comp case?: No [facility] History - Hepatitis A Screen Attestation statement:: This patient has been screened for Hepatitis A risk factors. I have reviewed the patient's past medical history: Yes Medical History: Reports:: Asthma Other Medical History: Reports: Arthritis, Hypothyroidism, Sinus Problems, Other Comment: THYROID ISSUES,SCOLIOSIS Other Surgeries: Yes: , Dilation and Curettage, Tubal Ligation Amputation: No Fractures: No - Social History Smoking Status: Former smoker Tobacco Type: cigarettes Alcohol Intake: never Substance Use Type: denies use Occupational Status: other Housing: apartment Household Members: children, spouse Family Hx:: Cancer, Heart Attack, Diabetes ROS Obtained: Yes All systems reviewed & no additional compl
--- NOTE | 2021-12-24 17:41 | XR_ITS ---
PROCEDURE INFORMATION: Exam: XR Chest Exam date and time: 12/24/21 06:01 PM Age: 36 years old Clinical indication: Patient HX: Cough, covid; Additional info: Congestion TECHNIQUE: Imaging protocol: XR of the chest. Views: 2 views. COMPARISON: No relevant prior studies available. FINDINGS: Lungs: Unremarkable. No consolidation. Pleural spaces: Unremarkable. No pleural effusion. No pneumothorax. Heart/Mediastinum: Unremarkable. No cardiomegaly. Bones/joints: Unremarkable. IMPRESSION: No acute findings.
[2021-12-24 17:55] LABS: Strep Scrn Group A (Rapid) Negative (Negative)
[2021-12-24 18:20] VITALS: BP 114/72; PULSE 69; RESP 22; TEMP 36.7; O2SAT 99
== END 2021-12-24 18:25 | disposition home or self-care (01) ==
PROVIDERS: Emergency Provider Nurse Practitioner Family; PCP Physician Assistant
DX: U07.1 COVID-19 (principal); J45.909 Unspecified asthma, uncomplicated
CPT/HCPCS: 71046; 87430; 99212; G0463

== ENCOUNTER 2022-02-17 11:46 | Emergency (ER) | payer OTHER, SELFPAY ==
--- NOTE | 2022-02-17 12:00 | HMH.EDUTC ---
[facility] [place] Clinical Impression: Viral syndrome, Exposure to COVID-19 virus Disposition: Home, Self-Care Condition on Discharge: Good Instructions: DI for COVID-19 (Suspected or Confirmed ), Preventing the Spread of Coronavirus Discharge Instructions Additional Instructions: Drink plenty of fluids. Take tylenol or ibuprofen for pain or fever. Take the medications as directed. Follow up with your regular doctor. GO TO THE ER FOR ANY WORSENING SYMPTOMS Quarantine until you know the results of your covid-19 test. Notify your school or workplace of your results and follow their instructions regarding return to work/school. Prescriptions: Ondansetron [Zofran 4mg ODT] 4 mg PO Q8HP PRN #20 tab PRN Reason: Nausea [facility] Benzonatate [Benzonatate 100mg cap] 100 mg PO TIDP PRN #30 cap PRN Reason: Cough Transmission Status: Received by [facility] Referrals: Ilana Ireland PA [Primary Care Provider] - Time of Disposition: 12:10 Medical Decision Making - Medical Records Medical records reviewed: No: I reviewed the patient's medical records. - Dwayne Inquiry Pt receiving controlled substance: No Vital Signs: 02/17/22 12:09 02/17/22 12:12 Temperature 98.3 F 98.3 F Temperature Source Oral Pulse Rate 63 Pulse Rate [Left] 63 Respiratory Rate 16 16 Blood Pressure 112/80 Blood Pressure [Right Arm] 112/80 Blood Pressure Mean [Right Arm] 90 02 Sat by Pulse Oximetry 97 - Lab Data Lab results reviewed: Yes: I reviewed the patient's lab results. Lab Results 02/17/22 12:15: Chlamy pneumoniae PCR Not detected, Adenovirus (PCR) Not detected, B. pertussis DNA (PCR) Not detected, Coronavirus OC43 (PCR) Not detected, Coronavirus HKU1 (PCR) Not detected, Coronavirus 229E (PCR) Not detected, SARS-CoV-2 (PCR) Not detected, Coronavirus NL63 (PCR) Not detected, Human Metapneumovir PCR Not detected, Influenza A (H1) PCR Not detected, Influ A (H1N1/09) PCR Not detected, Influenza A (H3) PCR Not detected, Influenza Type A (PCR) Not detected, Influenza Type B (PCR) Not detected, M. pneumoniae (PCR) Not detected, Parainfluenza 1 (PCR) Not detected, Parainfluenza 2 (PCR) Not detected, Parainfluenza 3 (PCR) Not detected, Parainfluenza 4 (PCR) Not detected, RSV (PCR) Not detected, Entero/Rhino (PCR) Not detected [facility] [place] - General Stated complaint: ear pain; chills; covid exposure Time Seen by Provider: 02/17/22 12:00 - History of Present Illness Provider Complaint: She states that for the past 3 days she has had body aches, chills, low grade fever, sinus congestion and she has felt bad. - Related Data Previous Rx's Medication Instructions Recorded Albuterol Sulfate [Albuterol 2 puffs IH Q6HP PRN 30 Days #1 each 12/24/21 Sulfate Hfa] Promethazine/Dextromethorphan 5 ml PO Q6HP PRN #240 ml 12/24/21 [Promethazine-Dm Syrup] Benzonatate [Benzonatate 100mg 100 mg PO TIDP PRN #30 cap 02/17/22 cap] Ondansetron [Zofran 4mg ODT] 4 mg PO Q8HP PRN #20 tab 02/17/22 Allergies Allergy/AdvReac Type Severity Reaction Status Date / Time codeine [CODEINE] Allergy Intermediate I-RASH Verified 12/17/21 09:57 penicillin G [PENICILLIN G] Allergy Intermediate I-HIVES Verified 12/17/21 09:57 [facility] History - Hepatitis A Screen Attestation statement:: This patient has been screened for Hepatitis A risk factors. I have reviewed the patient's past medical history: Yes Medical History: Reports:: Asthma Other Medical History: Reports: Arthritis, Hypothyroidism, Sinus Problems, Other Comment: THYROID ISSUES,SCOLIOSIS Other Surgeries: Yes: , Dilation and Curettage, Tubal Ligation Amputation: No Fractures: No - Social History Smoking Status: Former smoker Tobacco Type: cigarettes Alcohol Intake: never Substance Use Type: denies use Occupational Status: other Housing: apartment Household Members: children
[2022-02-17 12:09] VITALS: BP 112/80; PULSE 63; RESP 16; TEMP 36.8; O2SAT 97; BMI 30.9
[2022-02-17 12:12] VITALS: BP 112/80; PULSE 63; RESP 16; TEMP 36.8
[2022-02-17 12:23] LABS: Adenovirus,PCR Not Detected (NotDetected); Bordetella Pertussis Not Detected (NotDetected); Chlamydophila Pneumoniae, PCR Not Detected (NotDetected); Coronavirus 19, PCR Not Detected (NotDetected); Coronavirus 229E Not Detected (NotDetected); Coronavirus NL63 Not Detected (NotDetected); Coronavirus OC43 Not Detected (NotDetected); Coronovirus HKU1,PCR Not Detected (NotDetected); Human Metapneumovirus Not Detected (NotDetected); Influenza A, PCR Not Detected (NotDetected); Influenza AH1, 2009 Not Detected (NotDetected); Influenza AH1, PCR Not Detected (NotDetected); Influenza AH3,PCR Not Detected (NotDetected); Influenza B, PCR Not Detected (NotDetected); Mycoplasma Pneumoniae, PCR Not Detected (NotDetected); Parainfluenza 1, PCR Not Detected (NotDetected); Parainfluenza 2, PCR Not Detected (NotDetected); Parainfluenza 3, PCR Not Detected (NotDetected); Parainfluenza 4, PCR Not Detected (NotDetected); Respiratory Syncytial Virus Not Detected (NotDetected); Rhinovirus/Enterovirus Not Detected (NotDetected)
== END 2022-02-17 12:16 | disposition home or self-care (01) ==
PROVIDERS: Emergency Provider Nurse Practitioner Family; PCP Physician Assistant
DX: Z03.89 Encounter for observation for other suspected diseases and conditions ruled out (principal); Z20.822 Contact with and (suspected) exposure to COVID-19; E03.9 Hypothyroidism, unspecified; E55.9 Vitamin D deficiency, unspecified; M06.9 Rheumatoid arthritis, unspecified; M19.90 Unspecified osteoarthritis, unspecified site; M41.9 Scoliosis, unspecified; J30.9 Allergic rhinitis, unspecified; Z88.0 Allergy status to penicillin; Z88.5 Allergy status to narcotic agent; Z87.891 Personal history of nicotine dependence; Z82.49 Family history of ischemic heart disease and other diseases of the circulatory system; Z83.3 Family history of diabetes mellitus; Z80.9 Family history of malignant neoplasm, unspecified
CPT/HCPCS: 87581; 87632; 87798; 99213; C9803; G0463; U0003; U0005

== ENCOUNTER 2022-03-06 11:53 | Emergency (ER) | payer OTHER, SELFPAY ==
[2022-03-06 13:10] VITALS: BP 114/66; PULSE 71; RESP 19; TEMP 36.7; O2SAT 99; BMI 26.2
[2022-03-06 13:31] VITALS: BP 114/66; PULSE 71; RESP 19; TEMP 36.7; O2SAT 99
[2022-03-06 13:32] LABS: UTC Strep Screen (Rapid) Positive (Negative)
--- NOTE | 2022-03-06 13:34 | HMH.EDUTC ---
[facility] [place] Disposition Clinical Impression: Strep throat Disposition: Home, Self-Care Condition on Discharge: Good Instructions: Strep Throat, DI for Strep Throat Additional Instructions: *Monitor Temp, Over the counter Motrin or Tylenol as directed/as needed Tylenol every 4 hours and Motrin every 6 hours (as long as your family doctor has told you that you can take it) for fever or pain. and straight to ER if unable to lower temp less than 101.0 after medication given *Warm salt water gargles may help to soothe the throat *Throat Lozenges *Warm fluids like tea with honey may help to soothe the throat *Sleep elevated *Humidifier/Vaporizer *If you did not take Penicillin shot or was unable to, start taking antibiotic immediately and make sure that you take it for the FULL length of time although you should start to feel better in 24-48 hours *change toothbrush and toothpaste 24-48 hours after starting to take antibiotics so you do not reinfect yourself Monitor Temp. Tylenol and/or Ibuprofen as needed. ER if fever is no less than 101 despite alternating Tylenol and Ibuprofen * Encourage fluids, water, Gatorade, powerade, pedialyte if infant/toddler/or child *Cold fluids, popsicles and ice cream may feel good on his throat Follow up IMMEDIATELY for new or worsening symptoms or no Noticeable improvement over the next 48-72 hours. 911 for difficulty breathing or swallowing Prescriptions: Azithromycin [Z-Angelito 250mg Tab] 250 mg PO DIRECTED #6 tab Transmission Status: Pending to [facility] Referrals: Provider,Referral, [Primary Care Provider] - As needed Time of Disposition: 13:41 Medical Decision Making - Dwayne Inquiry Pt receiving controlled substance: No Dwayne was queried for this patient: No Vital Signs: 03/06/22 13:10 03/06/22 13:31 Temperature 98.1 F 98.1 F Temperature Source Oral Pulse Rate 71 Pulse Rate [Right Brachial] 71 Respiratory Rate 19 19 Blood Pressure 114/66 Blood Pressure [Right Arm] 114/66 Blood Pressure Mean [Right Arm] 82 Blood Pressure Source [Right Arm] Automatic Cuff Blood Pressure Position [Right Arm] Sitting 02 Sat by Pulse Oximetry 99 Oxygen Delivery Method Room Air - Lab Data Lab results reviewed: Yes: I reviewed the patient's lab results. Lab Results 03/06/22 13:08: Strep Scn Rapid Clinic Positive A [facility] [place] HPI - General Stated complaint: Sore throat, ear pain Time Seen by Provider: 03/06/22 13:34 Mode of Arrival: Ambulatory Source of Information: Patient Limitations: No Limitations Description of Symptoms (Recalled from Triage Doc. by RN): PATIENT C/O SORE THROAT, EAR PAIN, AND COUGH SINCE LAST NIGHT HEENT Symptoms (Recalled from RN notes): Yes Resp Symptoms (Recalled from RN notes): No Skin Symptoms (Recalled from RN notes): No MS Symptoms (Recalled from RN notes): No Functional Status (Recalled from RN notes): WNL - History of Present Illness Provider Complaint: Patient states that she started with sore throat yesterday and having pain and pressure in her ears States that she woke up this morning still having sore throat pain and thinks she may have strep throat - Related Data Previous Rx's Medication Instructions Recorded Albuterol Sulfate [Albuterol 2 puffs IH Q6HP PRN 30 Days #1 each 12/24/21 Sulfate Hfa] Promethazine/Dextromethorphan 5 ml PO Q6HP PRN #240 ml 12/24/21 [Promethazine-Dm Syrup] Benzonatate [Benzonatate 100mg 100 mg PO TIDP PRN #30 cap 02/17/22 cap] Ondansetron [Zofran 4mg ODT] 4 mg PO Q8HP PRN #20 tab 02/17/22 Azithromycin [Z-Angelito 250mg Tab] 250 mg PO DIRECTED #6 tab 03/06/22 Allergies Allergy/AdvReac Type Severity Reaction Status Date / Time codeine [CODEINE] Allergy Intermediate I-RASH Verified 12/17/21 09:57 penicillin G [PENICILLIN G] Allergy Intermediate I-HIVES Verified 12/17/21 09:57 - Worker's Comp Is this a Worker's Comp case?: No [facility] History - Hepatitis A Screen Attest
== END 2022-03-06 13:47 | disposition home or self-care (01) ==
PROVIDERS: Emergency Provider Nurse Practitioner
DX: J02.0 Streptococcal pharyngitis (principal); H92.03 Otalgia, bilateral
CPT/HCPCS: 87880; 99212; G0463

== ENCOUNTER → 2022-10-21 14:57 | Outpatient (CLI) | payer OTHER, SELFPAY ==
--- NOTE | 2022-10-21 15:01 | MM_ITS ---
PROCEDURE INFORMATION: Exam: MG Bilateral Screening 3D Mammography Exam date and time: 10/21/2022 2:51 PM Age: 36 years old Clinical indication: Screening. No family history of breast cancer. TECHNIQUE: Imaging protocol: Bilateral Screening tomosynthesis and 2D mammography including computer-aided detection (CAD) when performed. COMPARISON: 1. MG DMDXUL DIG MAMM-DX UNI-LT 11/18/2014 2:42 PM 2. MG DMDB DIG MAMM-DX DOUGLAS 08/20/2014 2:58 PM 3. BL US BREAST-LT COMPLETE W/AXILLA 05/22/2015 11:11 AM 4. BL US BREAST-LT COMPLETE W/AXILLA 11/18/2014 2:16 PM FINDINGS: MAMMOGRAPHY: Breast composition: The breasts are heterogeneously dense, which may obscure small masses. Mass: None. Architectural distortion: None. Calcifications: No suspicious calcifications. Asymmetric density: None. Skin thickening: None. Axillary adenopathy: None. IMPRESSION: No mammographic evidence of malignancy. Annual screening is recommended unless otherwise clinically indicated. ASSESSMENT: BI-RADS Category 1: Negative
== END ==
PROVIDERS: PCP Physician Assistant; Visit Provider Physician Assistant
DX: Z12.31 Encounter for screening mammogram for malignant neoplasm of breast (principal)
CPT/HCPCS: 77063; 77067

== ENCOUNTER 2022-11-11 17:08 | Emergency (ER) | payer OTHER, SELFPAY ==
--- NOTE | 2022-11-11 17:14 | XR_ITS ---
PROCEDURE INFORMATION: Exam: XR Right Knee Exam date and time: 11/11/2022 5:11 PM Age: 37 years old Clinical indication: Pain; Knee; Right; Additional info: Pain and swelling TECHNIQUE: Imaging protocol: Radiologic exam of the right knee. Views: 3 views. COMPARISON: No relevant prior studies available. FINDINGS: Bones/joints: There is no evidence of acute fracture or dislocation. Joint spaces appear preserved. Soft tissues: There is rounded fullness in the suprapatellar space measuring approximately 8.5 x 4.1 cm suggesting large joint effusion. There is also likely accompanying soft tissue edema. No subcutaneous emphysema or radiopaque foreign bodies. IMPRESSION: 1. No acute posttraumatic osseous injury. 2. Large joint effusion and mild soft tissue edema.
[2022-11-11 17:50] VITALS: BP 122/76; PULSE 78; RESP 18; TEMP 37.1; O2SAT 98; BMI 31.3
--- NOTE | 2022-11-11 18:11 | EXP.UTC ---
Discharge Plan Disposition Patient Disposition: Home, Self-Care Condition: Good Prescriptions Prescriptions: New ibuprofen 600 mg tablet 600 mg PO Q6HP PRN (Reason: Moderate Pain) Qty: 20 0RF No Action montelukast 10 mg tablet 10 mg PO DAILY Label Comments: TAKE 1 TABLET BY MOUTH ONCE DAILY IN THE EVENING levocetirizine 5 mg tablet 5 mg PO DAILY Label Comments: TAKE 1 TABLET BY MOUTH ONCE DAILY IN THE EVENING Referrals Follow up/Referrals: Laura Dominguez PA [Primary Care Provider] - See instructions Ronald Brenner JR, MD [Physician] - See instructions Activity Restrictions/Add. Instructions Additional Instructions/Restrictions: *weight bearing as tolerated *RICE, Rest the extremity, Ice 15-20 minutes 3-4 times daily, Compress- wear the nini wrap as discussed as much as possible to help reduce swelling and pain, Elevate the extremity when at rest *Knee immobilizer is for support and help control swelling, use it except in the shower. Be sure that is not to tight but not to loose either *Elevate when resting? *Ibuprofen 600 every 6-8 hours as needed for pain an inflammation. If need something more can take Tylenol in between doses of Ibuprofen to help Immediately follow up with your family doctor for new or worsening of symptoms, or no noticeable improvement over the next 3-5 days follow up with Orthopedics or your Family Doctor If you start having fever, any redness or warmth to the knee go straight to ER Clinical Impressions Clinical Impression: Effusion of knee joint Stand Alone Forms Stand Alone Forms: Work/School Release Instructions Patient Instructions: DI for Knee Effusion Discharge ED Provider: Fara Velez [facility] General Stated complaint: R knee swollen Mode of Arrival: Ambulatory Source of Information: Patient Limitations: No Limitations Time Seen by Provider: 11/11/22 18:12 Description of Symptoms (Recalled from Triage Doc. by RN): swelling of right knee no accident HEENT Symptoms (Recalled from RN notes): No Resp Symptoms (Recalled from RN notes): No Skin Symptoms (Recalled from RN notes): No MS Symptoms (Recalled from RN notes): Yes Functional Status (Recalled from RN notes): n/a History of Present Illness Provider Complaint: Patient state that she has been having swelling in her right knee since they changed her arthritis medication States that she has done this before but not as bad as it has been States that today it was hurting when she would walk denies known injury states that she hasnt fallen hasnt twisted it or anything no bruising no redness no warmth Related Data Home Medications Medication Instructions Recorded Confirmed levocetirizine 5 mg tablet 5 mg PO DAILY . 11/11/22 11/11/22 montelukast 10 mg tablet 10 mg PO DAILY allergies 11/11/22 11/11/22 Previous Rx's Medication Instructions Recorded ibuprofen 600 mg tablet 600 mg PO Q6HP PRN Moderate Pain 11/11/22 #20 tabs Allergies Allergy/AdvReac Type Severity Reaction Status Date / Time codeine [CODEINE] Allergy Intermediate I-RASH Verified 11/11/22 18:10 penicillin G [PENICILLIN G] Allergy Intermediate I-HIVES Verified 11/11/22 18:10 Worker's Comp Is this a Worker's Comp case?: No [facility] Disclaimer: The information contained in this section may have been updated after the patient was seen, as this information can be updated by other users. Medical History (Updated 11/11/22 @ 18:26 by Fara Velez APRN) Allergic rhinitis Hypothyroidism Rheumatoid arthritis Vitamin D deficiency Social History Smoking Status: Former smoker alcohol intake: never substance use type: denies use current occupational status: other Travel in the last 8 weeks: None household members: spouse and children housing: apartment ROS Obtained: Yes All systems reviewed & no additional complaints except as documented a
[2022-11-11 18:45] VITALS: BP 122/76; PULSE 78; RESP 18; TEMP 37.1; O2SAT 98
== END 2022-11-11 18:45 | disposition home or self-care (01) ==
PROVIDERS: Emergency Provider Nurse Practitioner; PCP Physician Assistant
DX: M25.461 Effusion, right knee (principal); M06.9 Rheumatoid arthritis, unspecified; E03.9 Hypothyroidism, unspecified; Z87.891 Personal history of nicotine dependence
CPT/HCPCS: 73562; 99212; 99214; G0463

== ENCOUNTER → 2022-12-15 16:04 | Outpatient (CLI) | payer OTHER, SELFPAY ==
--- NOTE | 2022-12-15 16:04 | MR_ITS ---
PROCEDURE INFORMATION: Exam: MR Right Lower Extremity Joint Without Contrast, Knee Exam date and time: 12/15/2022 4:07 PM Age: 37 years old Clinical indication: Pain; Knee; Right; Additional info: Knee effusion. Medial sided knee pain. Burning pain on lateral side TECHNIQUE: Imaging protocol: Magnetic resonance imaging of the right lower extremity joint without contrast. Exam focused on the knee. COMPARISON: CR XR KNEE RT 3V 11/11/2022 5:11 PM FINDINGS: Bones/joints: There is a large knee joint effusion present with synovitis similar to the comparison x-ray. No joint space narrowing. Normal cartilage. Medial meniscus: Unremarkable. No tear. Lateral meniscus: Unremarkable. No tear. Anterior cruciate ligament: Unremarkable. No tear. Posterior cruciate ligament: Unremarkable. No tear. Medial capsule and supporting structures: Unremarkable. No tear. Lateral capsule and supporting structures: Unremarkable. No tear. Extensor mechanism of knee: Mild quadriceps and patellar tendinosis. There is laxity of the distal patellar tendon. Soft tissues: Mild soft tissue edema is seen anterior to the knee IMPRESSION: 1. Large knee joint effusion with synovitis. Consider nontraumatic/rheumatologic causes clinically. Aspiration of the joint may be helpful for further assessment. 2. Quadriceps and patellar tendinosis. 3. No meniscal or cruciate ligament tear.
== END ==
PROVIDERS: PCP Physician Assistant; Visit Provider Orthopaedic Surgery
DX: M25.561 Pain in right knee (principal); M25.461 Effusion, right knee
CPT/HCPCS: 73721

== ENCOUNTER → 2023-03-01 16:43 | Outpatient (CLI) | payer OTHER, SELFPAY ==
[2023-03-01 17:57] LABS: Free Thyroxine Index 2.6 ug/dL (5.93-13.13); Triiodothryronine (T3) Uptake 33 % (23.5-40.5)
[2023-03-01 18:10] LABS: Thyroid Stimulating Hormone 1.76 uIU/mL (0.465-4.68)
[2023-03-03 12:53] LABS: Estradiol 38.9 pg/mL (.); FSH 4.4 mIU/mL (.); LH 12.3 mIU/mL (.)
== END ==
PROVIDERS: PCP Nurse Practitioner Family; Visit Provider Nurse Practitioner Obstetrics & Gynecology
DX: N95.1 Menopausal and female climacteric states (principal)
CPT/HCPCS: 36415; 82670; 83001; 83002; 84436; 84443; 84479

== ENCOUNTER → 2023-05-03 15:06 | Outpatient (CLI) | payer OTHER, SELFPAY ==
--- NOTE | 2023-05-03 15:06 | US_ITS ---
PROCEDURE: US TRANSVAGINAL CLINICAL INDICATION: heavy bleeding COMPARISON: No exams were available for comparison FINDINGS: Transabdominal sonographic images of the pelvis were obtained. UTERUS: 7.6 cm x 6.1 cmx 5.1 cm with a combined endometrial thickness of 10.9mm. The uterus is retroverted and retroflexed. There is an anterior fibroid measuring 1.7 cm x 1.6 cm x 1.8 cm. There are several small nabothian cysts in the cervix. LEFT OVARY: 3.3 cm x2.2 cmx2.2cm with a volume of 8.3ml. There are multiple small follicles within the left ovary. The largest follicle measures 1.5 cm x 0.6 cm x 1.8 cm. RIGHT OVARY: 3.9 cmx 3.1 cmx2.0 cm with a volume of 12.7ml. There are multiple follicles within the right ovary. There is a corpus luteum in the right ovary measuring 1.3 cm x 1.4 cm x 1.3 cm. Both ovaries are seen and appear polycystic. Doppler flow to both ovaries are seen. There is no fluid in the cul-de-sac. IMPRESSION: 1. Retroverted retroflexed uterus. The endometrium measures 11 mm. 2. There is an anterior fibroid measuring 1.8 cm in size. 3. Both ovaries are seen and appear polycystic. 4. The right ovary has a corpus luteum measuring 1.4 cm. 5. No fluid in the cul-de-sac. Dictated by: Rodrick Atkins MD 05/04/2023 09:26 Rodrick Atkins MD in OV 05/04/2023 09:26
== END ==
PROVIDERS: PCP Nurse Practitioner Family; Visit Provider Nurse Practitioner Obstetrics & Gynecology
DX: N93.8 Other specified abnormal uterine and vaginal bleeding (principal)
CPT/HCPCS: 76830

== ENCOUNTER 2023-10-01 16:37 | Emergency (ER) | payer OTHER, SELFPAY ==
[2023-10-01 17:20] VITALS: BP 118/73; PULSE 65; RESP 20; TEMP 36.9; O2SAT 99; BMI 34.0
--- NOTE | 2023-10-01 17:43 | EXP.UTC ---
Discharge Plan Disposition Patient Disposition: Home, Self-Care Condition: Good Prescriptions Prescriptions: New azithromycin [Zithromax Z-Angelito] 250 mg tablet See Rx Instructions .ROUTE .COMPLEX 5 Days Qty: 6 0RF Rx Instructions: For 250 mg dose pack: take 500 mg today (day 1), then 250 mg for 4 days (days 2-5) No Action Actemra ACTPen 162 mg/0.9 mL pen injector 162 mg SQ WEEKLY fluticasone propionate 50 mcg/actuation spray,suspension 1 spray intranasal DAILY ergocalciferol (vitamin D2) 1,250 mcg (50,000 unit) capsule 1,250 mcg PO WEEKLY L norgest/e.estradiol-e.estrad 0.1 mg-20 mcg (84)/10 mcg (7) tablets,dose pack,3 month 1 tab PO DAILY Qty: 182 0RF montelukast 10 mg tablet 10 mg PO DAILY Patient Comments: TAKE 1 TABLET BY MOUTH ONCE DAILY IN THE EVENING levocetirizine 5 mg tablet 5 mg PO DAILY Patient Comments: TAKE 1 TABLET BY MOUTH ONCE DAILY IN THE EVENING Referrals Follow up/Referrals: Laura Meraz APRN [Primary Care Provider] - See instructions Activity Restrictions/Add. Instructions Additional Instructions/Restrictions: Take medication as prescribed Over the counter Motrin and/or Tylenol for fever and pain Follow up with your Family Doctor if no improvement or any worsening of symptoms Straight to ER if any life threatening symptoms Clinical Impressions Clinical Impression: Otitis media Instructions Patient Instructions: Middle Ear Infection Discharge ED Provider: Fara Velez [facility] General Stated complaint: Left earache Mode of Arrival: Ambulatory Source of Information: Patient Limitations: No Limitations Time Seen by Provider: 10/01/23 17:43 Description of Symptoms (Recalled from Triage Doc. by RN): PATIENT C/O LEFT EAR PAIN THAT STARTED MONDAY BUT IS WORSE TODAY HEENT Symptoms (Recalled from RN notes): Yes Resp Symptoms (Recalled from RN notes): No Skin Symptoms (Recalled from RN notes): No MS Symptoms (Recalled from RN notes): No Functional Status (Recalled from RN notes): WNL History of Present Illness Provider Complaint: Patient states that she started with ear pain on Monday that has continued to get worse today States today feels like sharp stabbing pain at times in her left ear Related Data Home Medications Medication Instructions Recorded Confirmed levocetirizine 5 mg tablet 5 mg PO DAILY . 11/11/22 08/01/23 montelukast 10 mg tablet 10 mg PO DAILY allergies 11/11/22 08/01/23 ergocalciferol (vitamin D2) 1,250 1,250 mcg PO WEEKLY 03/01/23 08/01/23 mcg (50,000 unit) capsule fluticasone propionate 50 1 spray intranasal DAILY 03/01/23 08/01/23 mcg/actuation nasal spray,suspension tocilizumab 162 mg/0.9 mL 162 mg SQ WEEKLY 03/01/23 08/01/23 subcutaneous pen injector (Actemra ACTPen) Previous Rx's Medication Instructions Recorded L norgest/E estradiol-E estrad 0.1 1 tab PO DAILY #182 tabs 08/02/23 mg-20 mcg (84)/10 mcg (7) tabs,3mos azithromycin 250 mg tablet See Rx Instructions PO .COMPLEX 5 10/01/23 (Zithromax Z-Angelito) days #6 tabs Allergies Allergy/AdvReac Type Severity Reaction Status Date / Time codeine [CODEINE] Allergy Intermediate I-RASH Verified 08/01/23 15:11 penicillin G [PENICILLIN G] Allergy Intermediate I-HIVES Verified 08/01/23 15:11 Worker's Comp Is this a Worker's Comp case?: No [facility] Disclaimer: The information contained in this section may have been updated after the patient was seen, as this information can be updated by other users. Medical History Allergic rhinitis Hypothyroidism Rheumatoid arthritis Vitamin D deficiency Surgical History Hx of section Hx of cone biopsy of cervix Hx of dilation and curettage Hx of tubal ligation Family History Grandmother Cancer Stomach Stroke Other Diabetes Heart attack Hypertension Kidney disease Social History Smoking Status: Former smoker tobacco type: cigarettes years smoked: 20 how long ago did patient quit smokin years ago alcohol intake: current substance use type: denies use current occupational status: other Travel in the last 8 weeks: None household members: spouse and children housing: apartment ROS Obtained: Yes All systems reviewed & no additional complaints except as documented and Yes Systems reviewed as appropriate & no additional complaints except as documented Constitutional Constitutional: Reports system reviewed and no additional complaints, except as documented and Reports as per HPI ENT Ears, Nose, Mouth, and Throat: Reports system reviewed and no additional complaints, except as documented, Reports as per HPI and Reports otalgia Cardiovascular Cardiovascular: Reports system reviewed and no additional complaints, except as documented and Reports as per HPI Respiratory Respiratory: Reports system reviewed and no additional complaints, except as documented and Reports as per HPI Gastrointestinal Gastrointestingal: Reports system reviewed and no additional complaints, except as documented and as per HPI Physical Exam General General appearance: alert and in no apparent distress ENT ENT exam: Present mucous membranes moist Expanded ENT Exam TM/Canal exam: Left TM: erythema and loss of landmarks Respiratory Respiratory exam: Present normal lung sounds bilaterally; Absent respiratory distress or wheezes Cardiovascular Cardiovascular exam: Present regular rate, normal rhythm and normal heart sounds Neurological Exam Neurological exam: Present alert, oriented X3 and normal gait Medical Decision Making Dwayne Inquiry Pt receiving controlled substance: No Dwayne was queried for this patient: No Vital Signs: 10/01/23 17:20 Temperature 98.4 F Temperature Source Oral Pulse Rate [Left Brachial] 65 Respiratory Rate 20 Blood Pressure [Left Arm] 118/73 Blood Pressure Mean [Left Arm] 88 Blood Pressure Source [Left Arm] Automatic Cuff Blood Pressure Position [Left Arm] Sitting 02 Sat by Pulse Oximetry 99 Oxygen Delivery Method Room Air
[2023-10-01 17:46] VITALS: BP 118/73; PULSE 65; RESP 20; TEMP 36.9; O2SAT 99
== END 2023-10-01 17:52 | disposition home or self-care (01) ==
PROVIDERS: Emergency Provider Nurse Practitioner; PCP Nurse Practitioner Family
DX: H66.92 Otitis media, unspecified, left ear (principal); E03.9 Hypothyroidism, unspecified; M06.9 Rheumatoid arthritis, unspecified; Z87.891 Personal history of nicotine dependence
CPT/HCPCS: 99212; 99214; G0463

== ENCOUNTER 2023-10-24 16:02 | Outpatient (CLI) | payer OTHER, SELFPAY ==
[2023-10-24 17:48] LABS: Free Thyroxine Index 2.2 ug/dL (5.93-13.13); T4 (Thyroxine) 7.7 ug/dl (5.53-11.0); Triiodothryronine (T3) Uptake 29 % (23.5-40.5)
[2023-10-24 18:02] LABS: Thyroid Stimulating Hormone 3.11 uIU/mL (0.465-4.68)
== END 2023-10-24 23:59 ==
LOC: LAB 16:02
PROVIDERS: PCP Nurse Practitioner Family; Visit Provider Nurse Practitioner Obstetrics & Gynecology
DX: E28.2 Polycystic ovarian syndrome (principal); R94.6 Abnormal results of thyroid function studies
CPT/HCPCS: 36415; 84436; 84443; 84479

== ENCOUNTER 2023-12-21 16:15 | Outpatient (CLI) | payer OTHER, SELFPAY ==
[2023-12-21 16:41] LABS: Basophils # 0.1 K/mm3 (0-0.2); Eosinophils # 0.2 K/mm3 (0.0-0.4); Eosinophils % 2.9 % (0.1-12.0); Hemoglobin 14.3 g/dL (12.2-16.2); Lymphocytes # 1.9 K/mm3 (0.7-4.5); Lymphocytes % 28.1 % (10-50); Mean Corpuscular HGB Conc 32.6 g/dL (31.8-35.4); Mean Corpuscular Hemoglobin 30.3 pg (27.0-31.2); Mean Corpuscular Volume 92.9 fl (81-99); Mean Platelet Volume 8.1 fl (7.4-10.4); Monocytes # 0.4 K/mm3 (0.1-1.0); Monocytes % 6.1 % (1.7-9.3); Neutrophils # 4.1 K/mm3 (1.8-7.8); Neutrophils % 60.9 % (37.0-80.0); Platelet Count 290 K/mm3 (142-424); Red Blood Count 4.74 M/mm3 (4.20-5.40); Red Cell Distribution Width 13.5 % (11.5-17.5); White Blood Count 6.7 K/mm3 (4.8-10.8)
[2023-12-21 16:58] LABS: Alanine Aminotransferase 51 U/L (12-78); Albumin Level 4.1 g/dl (3.5-5.0); Alkaline Phosphatase 50 U/L (38-126); Aspartate Amino Transferase 53 U/L (14-36); Bilirubin,Direct 0.2 mg/dl (0.0-0.4); Bilirubin,Indirect 0.2 mg/dL (0.0-0.9); Bilirubin,Total 0.4 mg/dl (0.2-1.3); Bilirubin,Unconjugated 0.2 mg/dL (0.0-1.1); Chol/HDL Ratio 4.9 (1-3.5); Cholesterol 181 mg/dl (140-200); Estimated Glomerular Filt Rate 70 ml/min (>60); GFR (African American) 84 ML/MIN (>60); HDL Cholesterol 37 mg/dl (40-60); Triglycerides 356 mg/dl (30-150); VLDL Cholesterol 71 mg/dL (0-40)
[2023-12-21 17:10] LABS: Direct LDL Cholesterol 96.24 mg/dL (100-129)
== END 2023-12-21 23:59 | disposition home or self-care (01) ==
LOC: LAB 16:19
PROVIDERS: PCP Nurse Practitioner Family; Visit Provider Internal Medicine Rheumatology
DX: M08.80 Other juvenile arthritis, unspecified site (principal); Z79.899 Other long term (current) drug therapy
CPT/HCPCS: 36415; 80061; 80076; 82565; 85025

== ENCOUNTER 2024-04-04 12:34 | Outpatient (CLI) | payer OTHER, SELFPAY ==
[2024-04-04 13:23] VITALS: BMI 32.7
[2024-04-04] MEDS: TUBERCULIN 5 UNITS/0.1ML 1ML VIAL ID (13:25)
--- NOTE | 2024-04-04 13:29 | PC.NURSE ---
PATIENT ON IMMUNO THERAPY DRUGS AT HOME. VERIFIED WITH PHARM JIMMY. VEGAS TO GIVE TB SKIN TEST
== END 2024-04-04 23:59 | disposition home or self-care (01) ==
LOC: UTC.OUT 12:35
PROVIDERS: PCP Nurse Practitioner Family; Visit Provider Nurse Practitioner
DX: Z11.1 Encounter for screening for respiratory tuberculosis (principal)
CPT/HCPCS: 86580

== ENCOUNTER 2024-06-29 15:42 | Emergency (ER) | payer OTHER, SELFPAY ==
--- NOTE | 2024-06-29 16:04 | EXP.UTC ---
Discharge Plan Disposition Patient Disposition: Home, Self-Care Condition: Good Prescriptions Prescriptions: New azithromycin [Zithromax] 250 mg tablet 250 mg PO UD DOSE PK Qty: 6 0RF Rx Instructions: Take two (2) tablets today, then one (1) tablet days #2 thru #5 benzonatate 100 mg capsule 100 mg PO TIDP PRN (Reason: Cough) Qty: 30 0RF methylprednisolone 4 mg Tablets,Dose Pack 4 mg PO DIRECTED 6 Days Qty: 21 0RF Rx Instructions: Take 1 pack as directed for 6 days No Action Actemra ACTPen 162 mg/0.9 mL pen injector 162 mg SQ WEEKLY fluticasone propionate 50 mcg/actuation spray,suspension 1 spray intranasal DAILY ergocalciferol (vitamin D2) 1,250 mcg (50,000 unit) capsule 1,250 mcg PO WEEKLY levonorgestrel-ethinyl estrad [Aviane] 0.1-20 mg-mcg tablet See Rx Instructions .ROUTE .COMPLEX Qty: 84 3RF Dose Instruction: Take 1 tablet by mouth once daily Rx Instructions: Take 1 tablet by mouth once daily montelukast 10 mg tablet 10 mg PO DAILY Patient Comments: TAKE 1 TABLET BY MOUTH ONCE DAILY IN THE EVENING levocetirizine 5 mg tablet 5 mg PO DAILY Patient Comments: TAKE 1 TABLET BY MOUTH ONCE DAILY IN THE EVENING Referrals Follow up/Referrals: Laura Meraz APRN [Primary Care Provider] - See instructions Activity Restrictions/Add. Instructions Additional Instructions/Restrictions: Drink plenty of fluids. Take tylenol or ibuprofen for pain or fever. Take the medications as directed. Follow up with your regular doctor. GO TO THE ER FOR ANY WORSENING SYMPTOMS Clinical Impressions Clinical Impression: Sinusitis, Otitis media Instructions Patient Instructions: Sinusitis, DI for Sinusitis Print Language Print Language: Cymraes Discharge ED Provider: Gavin Becerra [facility] General Stated complaint: sore throat ear pain Time Seen by Provider: 06/29/24 16:04 Related Data Home Medications ?Medication ?Instructions ?Recorded ?Confirmed levocetirizine 5 mg tablet 5 mg PO DAILY . 11/11/22 10/24/23 montelukast 10 mg tablet 10 mg PO DAILY allergies 11/11/22 10/24/23 ergocalciferol (vitamin D2) 1,250 1,250 mcg PO WEEKLY 03/01/23 10/24/23 mcg (50,000 unit) capsule fluticasone propionate 50 1 spray intranasal DAILY 03/01/23 10/24/23 mcg/actuation nasal spray,suspension tocilizumab 162 mg/0.9 mL 162 mg SQ WEEKLY 03/01/23 10/24/23 subcutaneous pen injector (Actemra ACTPen) Previous Rx's ?Medication ?Instructions ?Recorded levonorgestrel-ethinyl estradiol See Rx Instructions .Route 12/04/23 0.1 mg-20 mcg tablet (Aviane) .COMPLEX #84 tabs azithromycin 250 mg tablet 250 mg PO UD DOSE PK #6 tabs 06/29/24 (Zithromax) benzonatate 100 mg capsule 100 mg PO TIDP PRN Cough #30 caps 06/29/24 methylprednisolone 4 mg tablets in 4 mg PO DIRECTED 6 days #21 tabs 06/29/24 a dose pack Allergies Allergy/AdvReac Type Severity Reaction Status Date / Time codeine (CODEINE) Allergy Intermediate I-RASH Verified 10/24/23 15:39 penicillin G (PENICILLIN G) Allergy Intermediate I-HIVES Verified 10/24/23 15:39 [facility] Disclaimer: The information contained in this section may have been updated after the patient was seen, as this information can be updated by other users. Medical History Rheumatoid arthritis Vitamin D deficiency Allergic rhinitis Hypothyroidism Surgical History Hx of cone biopsy of cervix Hx of tubal ligation Hx of dilation and curettage Hx of section Family History Grandmother Cancer Stomach Stroke Other Diabetes Heart attack Hypertension Kidney disease Social History Smoking Status: Former smoker tobacco type: cigarettes years smoked: 20 how long ago did patient quit smokin years ago alcohol intake: current alcohol intake frequency: holidays/special occasions only substance use type: denies use current occupational status: other Travel in the last 8 weeks: None household members: spouse and children housing: apartment Have you lived/traveled outside [place] in past 30 days?: No Contact w/someone who lives/traveled outside US past 30 days?: No Exposure to someone with infectious disease in past 14 days?: No Do you have a fever (greater than 100.4 F or 38 C)?: No Have you tested positive for COVID-19: No Exposed to someone with COVID-19 in past 14 days?: No Do you have a sore throat?: Yes Do you have a cough?: Yes Do you have any weakness?: Yes Do you have any diarrhea?: No Are you experiencing any unusual bleeding?: No Do you have any muscle aches/pain?: No Do you have any abdominal pain?: No Are you experiencing loss of taste or smell?: No ROS Obtained: Yes All systems reviewed & no additional complaints except as documented Constitutional Constitutional: Reports poor appetite Eyes Eyes: Reports system reviewed and no additional complaints, except as documented ENT Ears, Nose, Mouth, and Throat: Reports as per HPI Cardiovascular Cardiovascular: Reports system reviewed and no additional complaints, except as documented and Denies chest pain Respiratory Respiratory: Denies shortness of breath, Reports chest congestion, Reports cough, Denies stridor and Denies wheezing Gastrointestinal Gastrointestingal: Reports system reviewed and no additional complaints, except as documented; Denies abdominal pain, diarrhea or vomiting Musculoskeletal Musculoskeletal: Reports system reviewed and no additional complaints, except as documented and Denies arthralgias Integumentary/Breasts Skin/Breast: Reports system reviewed and no additional complaints, except as documented and Denies rash Neurologic Neurologic: Denies paresthesias Allergic/Immunologic Allergic/Immunologic: Denies wheezing Physical Exam General General appearance: alert and in no apparent distress Head Head exam: atraumatic, normocephalic and normal inspection Eye Eye exam: Present normal appearance; Absent PERRL or EOMI ENT ENT exam: Present mucous membranes moist and normal external ear exam Expanded ENT Exam TM/Canal exam: Bilateral TM: erythema, bulging and effusion Nose exam: Absent sinus tenderness Nasal speculum exam: Bilateral: normal Mouth exam: Present normal external inspection and other; Absent drooling Teeth exam: Present normal inspection Throat exam: Present tonsillar erythema and tonsillomegaly Neck Neck exam: Present normal inspection, full ROM and trachea midline; Absent tenderness, meningismus or lymphadenopathy Chest Chest inspection: Present normal inspection and symmetric chest wall rise; Absent tenderness Respiratory Respiratory exam: Present normal lung sounds bilaterally; Absent respiratory distress, wheezes or stridor Cardiovascular Cardiovascular exam: Present regular rate, normal rhythm and normal heart sounds; Absent tachycardia or irregular rhythm Abdominal Exam Abdominal exam: Present soft and normal bowel sounds; Absent distention, tenderness, guarding, rebound or rigidity Extremities Exam Extremities exam: Present normal inspection and normal capillary refill; Absent tenderness, joint swelling or calf tenderness Back Exam Back exam: Present normal inspection and full ROM; Absent tenderness, CVA tenderness (R) or CVA tenderness (L) Neurological Exam Neurological exam: Present alert, oriented X3, CN II-XII intact, normal gait and reflexes normal; Absent motor sensory deficit Psychiatric Psychiatric exam: Present normal affect and normal mood Skin Skin exam: Present warm, dry, intact and normal color Lymphatic Lymphatic Findings: no adenopathy Medical Decision Making Medical Records Medical records reviewed: No I reviewed the patient's medical records. Screening: Per USPSTF and CDC recommendations, given the prevalence of disease in our region, it is our hospital?s policy to screen for HIV and viral Hepatitis for all patients aged 18 and over and those with ongoing risk factors. Dwayne Inquiry Pt receiving controlled substance: No Lab Data Lab results reviewed: Yes I reviewed the patient's lab results.
[2024-06-29 16:06] VITALS: BP 118/77; PULSE 56; RESP 18; TEMP 37.2; O2SAT 97; BMI 33.3
[2024-06-29 16:15] LABS: UTC Strep Screen (Rapid) Negative (Negative)
[2024-06-29 16:58] VITALS: BP 118/77; PULSE 56; RESP 18; TEMP 37.2
== END 2024-06-29 16:59 | disposition home or self-care (01) ==
PROVIDERS: Emergency Provider Nurse Practitioner Family; PCP Nurse Practitioner Family
DX: J01.90 Acute sinusitis, unspecified (principal); H66.93 Otitis media, unspecified, bilateral
CPT/HCPCS: 87880; 99213; G0381

== ENCOUNTER 2024-09-22 13:12 | Outpatient (CLI) | payer OTHER, SELFPAY ==
[2024-09-22 14:01] LABS: Basophils # 0.1 K/mm3 (0-0.2); Basophils % 0.6 % (0.1-2.0); Eosinophils # 0.2 K/mm3 (0.0-0.4); Eosinophils % 1.7 % (0.1-12.0); Hematocrit 39.4 % (37.0-47.0); Hemoglobin 13.4 g/dL (12.2-16.2); Lymphocytes # 1.7 K/mm3 (0.7-4.5); Lymphocytes % 15.4 % (10-50); Mean Corpuscular Volume 88.3 fl (81-99); Mean Platelet Volume 9.6 fl (7.4-10.4); Monocytes # 0.9 K/mm3 (0.1-1.0); Monocytes % 8.3 % (1.7-9.3); Neutrophils % 73.4 % (37.0-80.0); Platelet Count 417 K/mm3 (142-424); Red Blood Count 4.46 M/mm3 (4.20-5.40); Red Cell Distribution Width 11.9 % (11.5-17.5); White Blood Count 10.8 K/mm3 (4.8-10.8)
[2024-09-22 14:28] LABS: Estimated Glomerular Filt Rate 111 ml/min (>60); GFR (African American) 135 ML/MIN (>60)
[2024-09-22 14:29] LABS: Alanine Aminotransferase 127 U/L (12-78); Aspartate Amino Transferase 77 U/L (14-36)
== END 2024-09-22 23:59 | disposition home or self-care (01) ==
LOC: LAB 13:16
PROVIDERS: PCP Nurse Practitioner Family; Visit Provider Internal Medicine Rheumatology
DX: M08.80 Other juvenile arthritis, unspecified site (principal); Z79.899 Other long term (current) drug therapy
CPT/HCPCS: 36415; 82565; 84450; 84460; 85025

== ENCOUNTER 2024-12-23 18:54 | Outpatient (CLI) | payer OTHER, SELFPAY ==
--- OUTSIDE RECORDS SUMMARY | 2024-04-18 06:30 | XMS_ITS ---
Author Organization [facility] Address [address] [place] [address] Care Team Providers Care Chute Puller Name Role Phone Laura Dominguez Primary Care Provider Moses Valladares Unavailable [phone] Moses Valladares Unavailable Unavailable Mary Antunez Unavailable [phone] REASON FOR VISIT Yearly Encounters Encounter Location Date Provider Diagnosis [facility] [address] [place] [address] 04/18/2024 Mary Antunez Plan Of Treatment No Information Progress Notes * Pretty BROUSSARDDOB:1985 (39 yo F)Acc No.[id number]:04/18/2024 Progress Notes Patient: Pretty PADILLA Provider: Johny Antunez APRN :1985 A ge:38 Y S ex:Female Date:04/18/2024 Address:[address] [place] [address] [id number] Pcp:Laura Dominguez Subjective: * Chief Complaints: * 1 . Yearly. * Medical History: Objective: * Vitals: Assessment: Plan: * Treatment: * * Electronic signature of Tate Antunez APRN on 12/23/2024 at 06:58 PM EDT Sign off status: Pending * Provider: Johny Antunez APRN Date: 1 Generated for Angelica ramos/Shanel/eTransmitting on: 0 12/23/2024 06:58 PM EDT
--- OUTSIDE RECORDS SUMMARY | 2024-10-19 17:30 | XMS_ITS ---
Author Organization [facility] Address [address] [place] [address] Care Team Providers Care Curb Hop Name Role Phone Alberto Laura Primary Care Provider [phone] Moses Valladares Unavailable [phone] Moses Valladares Unavailable Unavailable Migration, Provider Unavailable Unavailable Allergies Allergen (clinical drug ingredient) Drug/Non Drug Allergy documented on EMR Reaction Allergy Type Onset Date Status codeine Codeine rash Drug Allergy Active Penicillin hives Drug Allergy Active [facility]IT [facility] Encounter Medications Medication SIG (Take, Route, Frequency, Duration) Notes Start Date End Date Status Vitamin D (Ergocalciferol) 1.25 MG (78127 UT) 1 cap(s) orally once a week for 28 days Active Flonase Allergy Relief 50 MCG/ACT as directed in each nostril once a day Active Singulair 10 MG 1 tab(s) orally once a day Active Xyzal Allergy 24HR 5 MG 1 tab(s) orally once a day (in the evening) Active Actemra ACTPen 162 MG/0.9 ML 162MG SUBCUTANEOUSLY EVERY 2 WEEKS *Please review and pick correct strength-formulati on from Medispan options. If intended option is not shown, discontinue and re-order from Quick Search* Active FIBER CHOICE FIBER SUPPLEMENT DIR *Please review for potential replacement for e-prescription and drug interaction check* Active Encounters Encounter Location Date Provider Diagnosis [facility] [address] [place] [address] 10/19/2024 Provider Migration Plan Of Treatment Medication Medication Name Sig Start Date Stop Date Notes Vitamin D (Ergocalciferol) 1 .25 MG (31950 UT) 1 cap(s) orally once a week for 28 days Progress Notes * Pretty URBINADOB:1985 (39 yo F)Acc No.[id number]:10/19/2024 Patient: Pretty PADILLA Provider: Gladys Mcneal :1985 A ge:38 Y S ex:Female Date:10/19/2024 Address:[address] [place] [address] [place], [id number] Pcp:Laura Dominguez Subjective: * Chief Complaints: * 1 . Multum To Medispan Conversion Encounter. * Medical History: * Medications: T aking FIBER CHOICE FIBER SUPPLEMENT DIR , Notes to Pharmacist: *Please review for potential replacement for e-prescription and drug interaction check*, Taking Actemra ACTPen 162 MG/0.9 ML SOLUTION 162MG SUBCUTANEOUSLY EVERY 2 WEEKS , Notes to Pharmacist: *Please review and pick [facility]. If intended option is not shown, discontinue and re-order from Quick Search*, Taking Xyzal Allergy 24HR 5 MG Tablet 1 tab(s) orally once a day (in the evening) , Taking Singulair 10 MG Tablet 1 tab(s) orally once a day , Taking Flonase Allergy Relief 50 MCG/ACT Suspension as directed in each nostril once a day * Allergies: P enicillin: hives - Allergy, Codeine: rash - Allergy. Objective: * Vitals: Assessment: Plan: * Treatment: * * Electronic signature of Prov ider Migration on 12/23/2024 at 06:58 PM EDT Sign off status: Pending * Provider: Gladys Mcneal Date: 0 10/19/2024 Generated for Angelica ramos/Shanel/Rhiannon on: 0 12/23/2024 06:58 PM EDT
--- OUTSIDE RECORDS SUMMARY | 2024-11-18 08:30 | XMS_ITS | Encounter Summary ---
Author Organization [facility] Address [address] [place] [address] Care Team Providers Care Steam Press Tender Name Role Phone Mariya Laura Tip VINES Primary Care Provider [phone]- [phone] Reason for Visit * Reason Comments Follow-up JRA Encounter Details Date Type Department Care Team (Latest Contact Info) Description 11/18/2024 8:30 AM EDT [facility] [address] [place] [address] Matt Taylor MD [address] [place] [address] OLIVIA (juvenile idiopathic arthritis) (CMS/HCC) (Primary Dx); High risk medication use; Inflammatory polyarthropathy (CMS/HCC); Liver enzyme elevation; Health care maintenance Social History Tobacco Use Types Packs/Day Years Used Date Smoking Tobacco: Former Cigarettes 1 19.1 1 - 06/17/2020 Passive Smoke Exposure: Past Smokeless Tobacco: Never Tobacco Cessation:Counseling Given: Not Answered Alcohol Use Standard Drinks/Week Comments Not Currently 0 (1 standard drink = 0.6 oz pur e alcohol) PHQ-2 Answer Date Recorded Patient Health Questionnaire-2 Score 0 11/18/2024 PHQ-2A Answer Date Recorded Patient Health Questionnaire-2 Score 0 05/17/2023 Comments Unknown Sex and Gender Information Value Date Recorded Sex Assigned at Female 07/22/2021 6:52 AM EST Legal Sex Female 6:59 PM EDT Gender Identity Female 07/22/2021 6:52 AM EST Sexual Orientation Straight 07/22/2021 6: 52 AM EST documented as of this encounter Last Filed Vital Signs Vital Sign Reading Time Taken Comments Blood Pressure 114/79 11/18/2024 8:20 AM EDT Pulse 67 11/18/2024 8:20 AM EDT Temperature 36.4 C (97.5 F) 11/18/2024 8:20 AM EDT Respiratory Rate 16 11/18/2024 8:20 AM EDT Oxygen Saturation 95% 11/18/2024 8:20 AM EDT Inhaled Oxygen Concentration - - Weight 79.4 kg (175 lb 0.7 oz) 11/18/2024 8:20 A M EDT Height 157.5 cm (5' 2 ) 11/18/2024 8:20 AM EDT Body Mass Index 32.02 11/18/2024 8:20 AM EDT documented in this encounter Functional Status * Over the past 2 weeks, how often have you been bothered by any of the following problems? Question Answer Date of Assessment Author Little interest or pleasure in doing things Not at all 11/18/2024 8:26 AM EDT Ashia Velez Feeling down, depressed, or hopeless Not at all 11/18/2024 8:26 AM EDT Ashia Velez Patient Health Questionnaire -2 Score 0 11/18/2024 8:26 AM EDT Ashia Velez documented as of this encounter Miscellaneous Notes * Progress Notes - Matt Taylor MD - 11/18/2024 8:30 AM EDT Subjective Pretty Broussard is a 39 y.o. 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, previousdiagnosis of polyarticular OLIVIA/JRA since 9 months of age Past medical/surgical history JRA/OLIVIA, seasonal allergies, CLBP and scoliosis HPI Brief Rheumatology history Onset: 9 mo of age; polyarticular OLIVIA persistent into adulthood Untreated 9 mo to ~29 yrs of age (no prior DMARD until 11/28) Lost to follow-up at 01/28- 09/02 Jts: PIPs, MCPs, wrists, R shoulder, TMJ, feet/MTPs Seronegative (-RF/-ACPA) Imaging: erosive XR 11/28, 12/2019 Past Rx: Pred (11/28-01/28), MTX (11/28-01/28; lost to F/U at ) 09/02 start MTX -2019 could not tolerate med self stopped -09/02 HCQ stopped 12/2019 Humira- stopped 08/2020 lost efficacy Enbrel 08/2020- 09/2022 Actemra 09/2022- current Initially seen by me June 05, 2023 She has hx of JRA with chronic deformity opf the hands and toes . Increased Actemra from every other week to weekly dosing, tapering off prednisone she was told she may have diverticulosis but not diverticulitis, it was not confirmed by imaging. Discussed that actemra carries risk for GI perforation , higher in patients with hx of diverticulitis Today: After switching to every other week actemra because of elevated liver enzymes she started getting achy. Her wrist hurt, stiff swell usually towards beginning of the second week . R- knee starts getting stiff She says she went to get them and was told they are not there She was told she shouldn't take tylenol/advil but ok to take ibuprofen from her last social sciences department chair. Her AST 77. ALT 127 09/24/24 No rashes. Sherrill eye, IBD, pleurisy, unintentional weight loss, fever, recurrent infection, changes in her skin /urine color. Social history Denies history of smoking, EtOH abuse or illicit substance use Family history Family History Problem Relation Name Age of Onset Diabetes Other Conversions - Other Other hypoglycemia Hypothyroidism Other Heart attack Other Rheum arthritis Other Conversions - Other Other Irregular heartbeat Allergies Codeine and Penicillins Review of Systems Constitutional: Negative for appetite change, fatigue and fever. HENT: Negative for mouth sores and sore throat. Respiratory: Negative for cough and shortness of breath. Cardiovascular: Negative for chest pain and leg swelling. Gastrointestinal: Negative for abdominal pain. Genitourinary: Negative for dysuria. Musculoskeletal: Positive for arthralgias. Current Outpatient Medications: fluticasone (Flonase) 50 MCG/ACT nasal spray, , Disp: , Rfl: levocetirizine (Xyzal) 5 MG tablet, Take 1 tablet (5 mg) by mouth 1 (one) time each day., Disp: , Rfl: montelukast (Singulair) 10 MG tablet, Take 1 tablet (10 mg) by mouth 1 (one) time each day in the evening., Disp: , Rfl: Multiple Vitamin (MULTIVITAMINS PO), Take by mouth., Disp: , Rfl: Tocilizumab (Actemra ACTPen) 162 MG/0.9ML solution auto-injector, Inject 0.9 mL (162 mg) under the skin every 14 (fourteen) days., Disp: 1.8 mL, Rfl: 2 ergocalciferol 1.25 MG (94869 UT) capsule, , Disp: , Rfl: fluticasone (Flonase) 50 MCG/ACT nasal spray, USE 2 SPRAY(S) IN EACH NOSTRIL ONCE DAILY (Patient not taking: Reported on 02/22/2024), Disp: , Rfl: montelukast (Singulair) 10 MG tablet, , Disp: , Rfl: Objective Physical Exam Constitutional: Appearance: Normal appearance. HENT: Head: Normocephalic and atraumatic. Right Ear: External ear normal. Left Ear: External ear normal. Mouth/Throat: Mouth: Mucous membranes are moist. Comments: No oral ulcers Adequate oral hygiene Adequate salivary pool Eyes: Conjunctiva/sclera: Conjunctivae normal. Cardiovascular: Rate and Rhythm: Normal rate and regular rhythm. Pulmonary: Effort: Pulmonary effort is normal. Breath sounds: Normal breath sounds. Abdominal: General: Abdomen is flat. Palpations: Abdomen is soft. Musculoskeletal: General: Normal range of motion. Cervical back: Normal range of motion. Comments: R- z defomoty, 3rd swan neck deformity. L-3rd and 4th swan neck deformity, R>L wrist tenderness Skin: Findings: No rash. Neurological: General: No focal deficit present. Mental Status: She is alert. Assessment/Plan Pretty Broussard 39 y.o. female with past medical history of juvenile rheumatoid arthritis with deformities, currently on Actemra juvenile rheumatoid arthritis with deformities, currently on Actemra every other week , tolerating medications well, CDAI today 10 mod DA, . Needs to be on weekly Actemra, switch to every other week in September due to elevated liver enzymes, she has not had them rechecked yet, she is not doing well, towards, on [facility] ultrasound today she was noted to synovitis of the dorsal wrist, in addition to tenderness to palpation, We will repeat labs, if LFTs improve then we will go back to every week Actemra, with close monitoring to liver enzymes within a month. Otherwise we will discuss other treatment options such as different IL 6 inhibition, I want inhibition or PAN inhibitors. Obtaining additional labs today labs Musculoskeletal ultrasound procedure note Clinical indication /history JRA, right wrist pain and tenderness, no obvious findings on clinical palpation Joint examined R-wrist, limited , dorsal Machine/Probe ME series 8/l12 Findings irregular bone contour- capitate, hypoechoic area between the capitate and lunate slightlypushing extensor tendon on long view , hypoechoic area at the intercarpal joints medially on transverse, 2+ doppler signal Impression synovitis at the intercarpal joint Immunization History Administered Date(s) Administered Influenza, injectable, quadrivalent, preservative free 04/22/2018, 05/18/2023 Influenza, recombinant, quadrivalent, injectable, preservative free 05/04/2020 Influenza, seasonal, injectable, preservative free 04/22/2018 Pneumococcal 20-gina Conj Vaccine 02/22/2024 Tdap 08/25/2016 Zoster, Recombinant 02/22/2024 She didn't do COVID vaccines She is not sure if she got pneumonia prevnar and shingles 08/18 today Pretty was seen today for follow-up. Diagnoses and all orders for this visit: OLIVIA (juvenile idiopathic arthritis) (CMS/HCC) (Primary) - Lipid panel; Future - Sedimentation Rate, Automated; Future - C-Reactive Protein, Plasma; Future - CBC and Differential; Future - Hepatic Function Panel; Future - Creatinine, Plasma; Future - Quantiferon TB Gold Plus; Future - Hepatitis B Surface Antigen; Future - Hepatitis B Core Total Antibody IgG,IgM; Future - Hepatitis C Antibody; Future High risk medication use - Lipid panel; Future - Sedimentation Rate, Automated; Future - C-Reactive Protein, Plasma; Future - CBC and Differential; Future - Hepatic Function Panel; Future - Creatinine, Plasma; Future - Quantiferon TB Gold Plus; Future - Hepatitis B Surface Antigen; Future - Hepatitis B Core Total Antibody IgG,IgM; Future - Hepatitis C Antibody; Future - zoster vaccine-recombinant adjuvanted (Shingrix) 50 MCG/0.5ML vaccine 50 mcg Inflammatory polyarthropathy (CMS/HCC) - Lipid panel; Future - Sedimentation Rate, Automated; Future - C-Reactive Protein, Plasma; Future - CBC and Differential; Future - Hepatic Function Panel; Future - Creatinine, Plasma; Future - Quantiferon TB Gold Plus; Future - Hepatitis B Surface Antigen; Future - Hepatitis B Core Total Antibody IgG,IgM; Future - Hepatitis C Antibody; Future Liver enzyme elevation - Lipid panel; Future - Sedimentation Rate, Automated; Future - C-Reactive Protein, Plasma; Future - CBC and Differential; Future - Hepatic Function Panel; Future - Creatinine, Plasma; Future - Quantiferon TB Gold Plus; Future - Hepatitis B Surface Antigen; Future - Hepatitis B Core Total Antibody IgG,IgM; Future - Hepatitis C Antibody; Future Health care maintenance I spent 47 minutes in this patient encounter which includes reviewing records from the referring provider, gathering history, reviewing images, labs, evaluation, counseling and documentation. Parts of this note were dictated using [facility] voice recognition software. As a result, errors may occur. When identified, these human resource advisor errors are corrected, but while every attempt is made to prevent/correct these, errors may still exist. Matt Taylor MD documented in this encounter Plan of Treatment Upcoming Encounters Date Type Department Care Team (Late st Contact Info) Description 04/22/2025 8:10 AM EDT Office Visit [facility] [address] [place] [address] Matt Taylor MD [address] [facility] [address] [place] [address] documented as of this encounter Results * Hepatitis C Antibody (11/18/2024 10:01 AM EDT) Hepatitis C Antibody Negative Negative 11/18/2024 2:02 PM EDT [facility] Blood Venous blood specimen / Unknown Venipuncture / Unknown 11/18/2024 10:01 AM EDT 11/18/2024 10:01 AM EDT us Matt Taylor MD LAB BLOOD ORDERABLES Final Re sult [facility] [address] [place] [address] * Hepatitis B Core Total Antibody IgG,IgM (11/18/2024 10:01 AM EDT) Hepatitis B Core Total Antibody IgG,IgM Negative Negative 11/18/2024 1:26 PM EDT [facility] Blood Venous blood specimen / Unknown Venipuncture / Unknown 11/18/2024 10:01 AM EDT 11/18/2024 10:01 AM EDT us Matt Taylor MD LAB BLOOD ORDERABLES Final Re sult [facility] [address] [place] [address] * Hepatitis B Surface Antigen (11/18/2024 10:01 AM EDT) Pathologist [facility] Hepatitis B Surf Antigen Negative Negative 11/18/2024 1:26 PM EDT [facility] Blood Venous blood specimen / Unknown Venipuncture / Unknown 11/18/2024 10:01 AM EDT 11/18/2024 10:01 AM EDT us Matt Taylor MD LAB BLOOD ORDERABLES Final Re sult [facility] [address] [place] [address] * Quantiferon TB Gold Plus (11/18/2024 10:01 AM EDT) Pathologist [facility] Quantiferon TB Gold Plus Result Negative Negative 11/19/2024 7:41 PM EDT [facility] TB Nill Value 0.0443 IU/mL 11/19/2024 7:41 PM EDT [facility] TB Antigen 1 0.0002 IU/mL 11/19/2024 7:41 PM EDT [facility] TB Antigen 2 0.0007 IU/mL 11/19/2024 7:41 PM EDT [facility] TB Mitogen 9.9557 IU/mL 11/19/2024 7:41 PM EDT [facility] Blood Venous blood specimen / Unknown Venipuncture / Unknown 11/18/2024 10:01 AM EDT 11/18/2024 10:01 AM EDT Narrative [facility] - 11/19/2024 7:41 PM EDT Responses to the Mitogen positive control and occasionally to TB antigen can be above the assay range. For calculation purposes: IFN-gamma values > 10 IU/mL are handled as 10 IU/mL. Matt Taylor MD LAB BLOOD ORDERABLES Final Re sult Performing Organization Address [facility] de Phone Number [facility] [address] [place] [address] * Creatinine, Plasma (11/18/2024 10:01 AM EDT) Creatinine, Plasma 0.64 0.60 - 1.10 mg/dL 11/18/2024 11:20 AM EDT [facility] eGFRcr 114.7 mL/min/1.7 3m*2 11/18/2024 11:20 AM EDT [facility] Comment:Reported eGFRcr in m L/min/1.73m2 is based the CKD-EPI 2020 equation that does not use a race coefficient. Blood Venous blood specimen / Unknown Venipuncture / Unknown 11/18/2024 10:01 AM EDT 11/18/2024 10:01 AM EDT Matt Taylor MD LAB BLOOD ORDERABLES Final Re sult Performing Organization Address [facility] Co de Phone Number [facility] [address] [place] [address] * (ABNORMAL) Hepatic Function Panel (11/18/2024 10:01 AM EDT) Conjugated Bilirubin, Plasma <0.2 <=0.3 mg/dL 11/18/2024 11:20 AM EDT [facility] Alkaline Phosphatase, Plasma 65 35 - 104 U/L 11/18/2024 11:20 AM EDT [facility] Total Bilirubin, Plasma 0.5 0.2 - 1.1 mg/dL 11/18/2024 11:20 AM EDT [facility] Albumin, Plasma 4.4 3.5 - 5.2 g/dL 11/18/2024 11:20 AM EDT [facility] Total Protein 7.1 6.3 - 7.9 g/dL 11/18/2024 11:20 AM EDT [facility] ALT, Plasma 92(H) 10 - 35 U/L 11/18/2024 11:20 AM EDT [facility] AST, Plasma 51(H) 10 - 35 U/L 11/18/2024 11:20 AM EDT [facility] Blood Venous blood specimen / Unknown Venipuncture / Unknown 11/18/2024 10:01 AM EDT 11/18/2024 10:01 AM EDT us Matt Taylor MD LAB BLOOD ORDERABLES Final Re sult [facility] [address] [place] [address] * (ABNORMAL) CBC and Differential (11/18/2024 10:01 AM EDT) WBC Count 7.62 3.70 - 10.30 10*3/uL LAB HEMATOLOGY METHOD 11/18/2024 10:56 AM EDT [facility] RBC Count 5.15 3.90 - 5.20 10*6/uL LAB HEMATOLOGY METHOD 11/18/2024 10:56 AM EDT [facility] HGB 15.2 11.2 - 15.7 g/dL LAB HEMATOLOGY METHOD 11/18/2024 10:56 AM EDT [facility] HCT 45.6(H) 34.0 - 45.0 % LAB HEMATOLOGY METHOD 11/18/2024 10:56 AM EDT [facility] Platelet Count 306 155 - 369 10*3/uL LAB HEMATOLOGY METHOD 11/18/2024 10:56 AM EDT [facility] MCV 89 79 - 98 fL LAB HEMATOLOGY METHOD 11/18/2024 10:56 AM EDT [facility] MCH 29.5 26.0 - 32.0 pg LAB HEMATOLOGY METHOD 11/18/2024 10:56 AM EDT [facility] MCHC 33.3 30.7 - 35.5 g/dL LAB HEMATOLOGY METHOD 11/18/2024 10:56 AM EDT [facility] RDW 11.9 11.5 - 14.5 % LAB HEMATOLOGY METHOD 11/18/2024 10:56 AM EDT [facility] MPV 10.0 8.8 - 12.5 fL LAB HEMATOLOGY METHOD 11/18/2024 10:56 AM EDT [facility] nRBC 0.0 <=0.0 per 100 WBCs LAB HEMATOLOGY METHOD 11/18/2024 10:56 AM EDT [facility] Differential Type Automated LAB HEMATOLOGY METHOD 11/18/2024 10:56 AM EDT [facility] Neutrophils % 67 % LAB HEMATOLOGY METHOD 11/18/2024 10:56 AM EDT [facility] Lymphocytes % 20 % LAB HEMATOLOGY METHOD 11/18/2024 10:56 AM EDT [facility] Monocytes % 8 % LAB HEMATOLOGY METHOD 11/18/2024 10:56 AM EDT [facility] Eosinophils % 3 % LAB HEMATOLOGY METHOD 11/18/2024 10:56 AM EDT [facility] Basophils % 1 % LAB HEMATOLOGY METHOD 11/18/2024 10:56 AM EDT [facility] Immature Granulocytes % 1 % LAB HEMATOLOGY METHOD 11/18/2024 10:56 AM EDT [facility] Neutrophils Absolute 5.19 1.60 - 6.10 10*3/uL LAB HEMATOLOGY METHOD 11/18/2024 10:56 AM EDT [facility] Lymphocytes Absolute 1.55 1.20 - 3.90 10*3/uL LAB HEMATOLOGY METHOD 11/18/2024 10:56 AM EDT [facility] Monocytes Absolute 0.61 0.30 - 0.90 10*3/uL LAB HEMATOLOGY METHOD 11/18/2024 10:56 AM EDT [facility] Eosinophils Absolute 0.19 0.00 - 0.50 10*3/uL LAB HEMATOLOGY METHOD 11/18/2024 10:56 AM EDT [facility] Basophils Absolute 0.04 0.00 - 0.10 10*3/uL LAB HEMATOLOGY METHOD 11/18/2024 10:56 AM EDT [facility] Immature Granulocytes Absolute 0.04 0.00 - 0.06 10*3/uL LAB HEMATOLOGY METHOD 11/18/2024 10:56 AM EDT [facility] Blood Venous blood specimen / Unknown Venipuncture / Unknown 11/18/2024 10:01 AM EDT 11/18/2024 10:01 AM EDT Narrative [facility] - 11/18/2024 10:56 AM EDT Therapeutic decision making should be based on absolute values, rather than percentages. us Matt Taylor MD LAB BLOOD ORDERABLES Final Re sult Performing Organization Address [facility] [place] [address] * C-Reactive Protein, Plasma (11/18/2024 10:01 AM EDT) CRP, Plasma <3.0 <=8.0 mg/L 11/18/2024 11:20 AM EDT [facility] Blood Venous blood specimen / Unknown Venipuncture / Unknown 11/18/2024 10:01 AM EDT 11/18/2024 10:01 AM EDT Narrative [facility] - 11/18/2024 11:20 AM EDT This CRP test is appropriate for assessment of infection, systemic inflammation and/or tissue injury. To assess cardiovascular disease risk order high sensitivity CRP (CRPH). Result Tawny Taylor MD LAB BLOOD ORDERABLES Final Re sult Performing Organization Address City/[facility] Co de Phone Number [facility] [address] [place] [address] * Sedimentation Rate, Automated (11/18/2024 10:01 AM EDT) Sedimentation Rate 3 <20 mm/hr 2024 11:10 AM EDT [facility] Blood Venous blood specimen / Unknown Venipuncture / Unknown 11/18/2024 10:01 AM EDT 11/18/2024 10:01 AM EDT us Matt Taylor MD LAB BLOOD ORDERABLES Final Re sult [facility] [address] [place] [address] * (ABNORMAL) Lipid panel (11/18/2024 10:01 AM EDT) Cholesterol, Plasma 165 <200 mg/dL 11/18/2024 11:20 AM EDT [facility] Comment: Cholesterol Reference Range (age >17 years): Desirable <200 mg/dL Borderline 200 to 239 mg/dL Undesirable >239 mg/dL HDL 37(L) >=50 mg/dL 11/18/2024 11:20 AM EDT [facility] Comment: HDL Cholesterol Reference Ranges (age >17 years): Female, acceptable > or = 50 mg/dL Male, acceptable > or = 40 mg/dL Triglycerides, Plasma 190(H) <150 mg/dL 11/18/2024 11:20 AM EDT [facility] Comment: Triglyceride Reference Range (age >17 years): Desirable: <150 mg/dL Borderline high: 150 to 199 mg/dL High: 200 to 499 mg/dL Very high: >499 mg/dL Increased risk of pancreatitis: >1000 mg/dL Cholesterol/HDL Ratio 4 11/18/2024 11:20 AM EDT [facility] LDL, Calculated 95 <100 mg/dL 11:20 AM EDT [facility] Comment: LDL Cholesterol Reference Range (age >17 years): Optimal: <100 mg/dL Near or above optimal: 100 - 129 mg/dL Borderline high: 130 - 159 mg/dL High: 160 - 189 mg/dL Very high: >189 mg/dL LDL Cholesterol Reference Range (age <18 years): Desirable: <110 mg/dL Borderline: 110 - 129 mg/dL Undesirable: >130 mg/dL LDL Cholesterol is calculated using the Padron/NIH equation. Fasting greater than or equal to 12 hours? Yes 11/18/2024 11:20 AM EDT [facility] Blood Venous blood specimen / Unknown Venipuncture / Unknown 11/18/2024 10:01 AM EDT 11/18/2024 10:01 AM EDT us Matt Taylor MD LAB BLOOD ORDERABLES Final Re sult [facility] [address] [place] [address] documented in this encounter Visit Diagnoses Diagnosis OLIVIA (juvenile idiopathic arthritis) (CMS/HCC)- Primary Other specified inflammatory polyarthropathies High risk medication use Inflammatory polyarthropathy (CMS/HCC) Unspecified inflammatory polyarthropathy Liver enzyme elevation Health care maintenance documented in this encounter Additional Health Concerns Assessment Noted Time A fall risk assessment has been complete d for the patient 11/18/2024 8:26 AM EDT A Body Mass Index follow-up plan has been documented for the patient 11/18/2024 2:17 PM EDT documented as of this encounter Care Teams Steam Press Tender Relationship Specialty Start Date End Date Laura Meraz APRN [address] [place] [address] [place] [address] PCP - General 02/22/24 documented as of this encounter
--- OUTSIDE RECORDS SUMMARY | 2024-12-19 13:00 | XMS_ITS | Encounter Summary ---
Author Organization [facility] Address [address] [place] [address] Care Team Providers Care High Scaler Name Role Phone Laura Meraz APRN Primary Care Provider [phone] Reason for Visit * Reason Comments [facility] Encounter Details Date Type Department Care Team (Latest Contact Info) Description 12/19/2024 1:00 PM EDT Office Visit [facility] [address] [place] [address] Matt Taylor MD [address] [place] [address] OLIVIA (juvenile idiopathic arthritis) (CMS/HCC) (Primary Dx); High risk medication use; Liver enzyme elevation; Inflammatory polyarthropathy (CMS/HCC) Social History Tobacco Use Types Packs/Day Years Used Date Smoking Tobacco: Former Cigarettes 1 19.1 1 - 06/17/2020 Passive Smoke Exposure: Past Smokeless Tobacco: Never Alcohol Use Standard Drinks/Week Comments Not Currently 0 (1 standard drink = 0.6 oz pur e alcohol) PHQ-2 Answer Date Recorded Patient Health Questionnaire-2 Score 0 12/19/2024 AUDIT-C Answer Date Recorded Q1: How often do you have a drink containing alc ohol? Never 12/19/2024 Average Number of Drinks Not on file 025 Frequency of Binge Drinking Not on file 0611/2024 PHQ-2A Answer Date Recorded Patient Health Questionnaire-2 [...] Sign Reading Time Taken Comments Blood Pressure - - Pulse - - Temperature - - Respiratory Rate - - Oxygen Saturation - - Inhaled Oxygen Concentration - - Weight 77.1 kg (170 lb) 12/19/2024 12:52 PM EDT Height 157.5 cm (5' 2 ) 12/19/2024 12:52 PM EDT Body Mass Index 31.09 12/19/2024 12:52 PM EDT documented in this encounter Functional Status * Over the past 2 weeks, how often have you been bothered by any of the following problems? Question Answer Date of Assessment Author Little interest or pleasure in doing things Not at all 12/19/2024 12:54 PM EDT Reina Peterson Feeling down, depressed, or hopeless Not at all 12/19/2024 12:54 PM EDT Reina Peterson Patient Health Questionnaire -2 Score 0 12/19/2024 12:54 PM EDT Reina Peterson documented as of this encounter Miscellaneous Notes * Progress Notes - Matt Taylor MD - 12/19/2024 1:00 PM EDT Subjective Telehealth Statement Patient Verification Patient identity has been confirmed using name and date of ? Yes Authorizations and Agreements/Telemedicine Consent sent and consent confirmed? Yes Patient Location: Home/Other Patient confirms they are physically located in [place]? Yes If the patient is not physically located in [place], the provider has confirmed with [facility] thatthe provider is authorized to provide services in patient's stated location? N/A Provider Location: [facility] facility Audio and video or audio only? Audio and video Total visit time: 43 minutes Pretty Broussard is a 39 y.o. female [...] in patients with hx of diverticulitis Today: She is off actemra since mid October, she was on every other week dose prior, she has persistent liver enzyme elevation even after reducing the dose She is not having joint pain, swelling or stiffness, she is doing well. Although on her most recentvisit she noted getting achy after switching to every other week Actemra, wrists stiffness in the 2nd week, right knee stiffness, today she says she feels the same as when she was on actemra No rashes. [place] eye, IBD, pleurisy, unintentional weight loss, fever, [...] 10 MG tablet, , Disp: , Rfl: Multiple Vitamin (MULTIVITAMINS PO), Take by mouth., Disp: , Rfl: ergocalciferol 1.25 MG (77876 UT) capsule, , Disp: , Rfl: fluticasone (Flonase) 50 MCG/ACT nasal spray, USE 2 SPRAY(S) IN EACH NOSTRIL ONCE DAILY (Patient not taking: Reported on 02/22/2024), Disp: , Rfl: montelukast (Singulair) 10 MG tablet, Take 1 tablet (10 mg) by mouth 1 (one) time each day in the evening., Disp: , Rfl: Tocilizumab (Actemra ACTPen) 162 MG/0.9ML solution auto-injector, Inject 0.9 mL (162 mg) under the skin every 14 (fourteen) days. (Patient not taking: Reported on 12/19/2024), Disp: 1.8 mL, Rfl: 2 Objective Physical Exam Constitutional: Appearance: Normal appearance. HENT: Head: Normocephalic and atraumatic. Right Ear: External ear normal. Left Ear: External ear normal. Mouth/Throat: Mouth: Mucous membranes are moist. Eyes: Conjunctiva/sclera: Conjunctivae normal. Pulmonary: Effort: Pulmonary effort is normal. Musculoskeletal: Cervical back: Normal range of motion. Comments: R- z defomoty, 3rd swan neck deformity. L-3rd and 4th swan neck deformity, R>L wrist tenderness Skin: Findings: No rash. Neurological: General: No focal deficit present. Mental Status: She is alert. Her AST 77. ALT 127 09/24/24 Assessment/Plan Pretty Broussard 39 y.o. female with past medical history of juvenile rheumatoid arthritis with deformities, currently on Actemra juvenile rheumatoid arthritis with deformities, recently on Actemra every other week switched from weekly in September due to elevated liver enzymes, CDAI today 2 low disease activity. on [facility] ultrasound in November she was noted to synovitis of the dorsal wrist, in addition to tenderness to palpation, Unfortunately her repeat liver enzyme worsened even she was off Actemra for 2 weeks, she also notesno significant change in her symptoms after coming off Actemra. 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 If disease were to become refractory with the worsening symptoms within the next 3-6 months we will consider abatacept or PAN inhibitor Dc actemra Pretty was seen today for [facility]. Diagnoses and all orders for this visit: OLIVIA (juvenile idiopathic arthritis) (CMS/HCC) (Primary) - Hepatic function panel; Future - Creatinine, Plasma; Future - Alanine Aminotransferase, Plasma; Future - Aspartate Aminotransferase, Plasma; Future - CBC and Differential; Future - C-Reactive Protein, Plasma; Future - Sedimentation Rate, Automated; Future High risk medication use - Hepatic function panel; Future - Creatinine, Plasma; Future - Alanine Aminotransferase, Plasma; Future - Aspartate Aminotransferase, Plasma; Future - CBC and Differential; Future - C-Reactive Protein, Plasma; Future - Sedimentation Rate, Automated; Future Liver enzyme elevation - Hepatic function panel; Future - Creatinine, Plasma; Future - Alanine Aminotransferase, Plasma; Future - Aspartate Aminotransferase, Plasma; Future - CBC and Differential; Future - C-Reactive Protein, Plasma; Future - Sedimentation Rate, Automated; Future Inflammatory polyarthropathy (CMS/HCC) - Hepatic function panel; Future - Creatinine, Plasma; Future - Alanine Aminotransferase, Plasma; Future - Aspartate Aminotransferase, Plasma; Future - CBC and Differential; Future - C-Reactive Protein, Plasma; Future - Sedimentation Rate, Automated; Future Other orders - sulfaSALAzine 500 MG PO EC tablet; Take 1 tablet by mouth daily for 7 days, THEN 1 tablet 2 timesa day for 14 days, THEN 2 tablets 2 times a day. Do not crush, chew, or split. I spent 47 minutes in this patient encounter which includes reviewing records from the referring provider, gathering history, reviewing images, labs, evaluation, counseling and documentation. Parts of this note were dictated using [employer] voice recognition software. As a result, errors may occur. When identified, these reflexologist errors are corrected, but while every attempt is made to prevent/correct these, errors may still exist. Matt Taylor MD documented in this encounter Plan of Treatment Upcoming Encounters Date Type Department Care Team (Late st Contact Info) Description 04/22/2025 8:10 AM EDT Office Visit [facility] Medicine Specialties [address] [place] [address] Matt Taylor MD [address] [place] [address] Scheduled Orders Name Type Priority Associated Diagnoses Orde r Schedule Hepatic function panel Lab Routine OLIVIA (juvenile idiopathic arthritis) (CMS/HCC) High risk medication use Liver enzyme elevation Inflammatory polyarthropathy (CMS/HCC) Expected: 01/16/2025 (Approximate), Expires: 06/22/2026 Creatinine, Plasma Lab Routine OLIVIA (juvenile idiopathic arthritis) (CMS/HCC) High risk medication use Liver enzyme elevation Inflammatory polyarthropathy (CMS/HCC) Expected: 01/16/2025 (Approximate), Expires: 06/22/2026 Alanine Aminotransferase, Plasma Lab Routine OLIVIA (juvenile idiopathic arthritis) (CMS/HCC) High risk medication use Liver enzyme elevation Inflammatory polyarthropathy (CMS/HCC) Expected: 01/02/2025, Expires: 06/20/2026 Aspartate Aminotransferase, Plasma Lab Routine OLIVIA (juvenile idiopathic arthritis) (CMS/HCC) High risk medication use Liver enzyme elevation Inflammatory polyarthropathy (CMS/HCC) Expected: 01/02/2025, Expires: 06/20/2026 CBC and Differential Lab Routine OLIVIA (juvenile idiopathic arthritis) (CMS/HCC) High risk medication use Liver enzyme elevation Inflammatory polyarthropathy (CMS/HCC) Expected: 01/16/2025 (Approximate), Expires: 06/22/2026 C-Reactive Protein, Plasma Lab Routine OLIVIA (juvenile idiopathic arthritis) (CMS/HCC) High risk medication use Liver enzyme elevation Inflammatory polyarthropathy (CMS/HCC) Expected: 01/16/2025 (Approximate), Expires: 06/22/2026 Sedimentation Rate, Automated Lab Routine OLIVIA (juvenile idiopathic arthritis) (CMS/HCC) High risk medication use Liver enzyme elevation Inflammatory polyarthropathy (CMS/HCC) Expected: 01/16/2025 (Approximate), Expires: 06/22/2026 documented as of this encounter Visit Diagnoses Diagnosis OLIVIA (juvenile idiopathic arthritis) (CMS/HCC)- Primary Other specified inflammatory polyarthropathies High risk medication use Liver enzyme elevation Inflammatory polyarthropathy (CMS/HCC) Unspecified inflammatory polyarthropathy documented in this encounter Additional Health Concerns Assessment Noted Time A fall risk assessment has been complete d for the patient 12/19/2024 12:55 PM EDT A Body Mass Index follow-up plan has been documented for the patient 12/19/2024 1:47 PM EDT documented as of this encounter Care Teams High Scaler Relationship Specialty Start Date End Date Laura Meraz APRN [address] [place] [address] PCP - General 02/22/24 documented as of this encounter
--- OUTSIDE RECORDS SUMMARY | 2024-12-23 18:58 | XMS_ITS | Patient Health Record ---
Author Organization [facility] Address [address] [facility] [address] [place] [address] Care Team Providers Care Chemical Waste Management Technician Name Role Phone Laura Dominguez Primary Care Provider [phone] Moses Valladares Unavailable [phone] Moses Valladares Unavailable Unavailable Mary Antunez Unavailable [phone] Migration, Provider Unavailable Unavailable Allergies Allergen (clinical drug ingredient) Drug/Non Drug Allergy documented on EMR Reaction Allergy Type Onset Date Status codeine Codeine rash Drug Allergy Active Penicillin hives Drug Allergy Active Reason For Referral No Information Medications Medication SIG (Take, Route, Frequency, Duration) Notes Start Date End Date Status Vitamin D (Ergocalciferol) 1.25 MG (64887 UT) 1 cap(s) orally once a week [...] for e-prescription and drug interaction check* Active Social History Tobacco Use: Social History Observation Description Date Details (start date - stop date) Former Smoker NA - NA Smoking: Question Answer Notes Are you a: former smoker How long has it been since you last smoked? 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) Active confirmed Encounters Encounter Location Date Provider Diagnosis [facility] [address] [place], [place] [address] 10/19/2024 Provider Migration Plan Of Treatment Pending Test Test Name Order Date LIPID PANEL WITH REFLEX TO DIRECT LDL (1 1201) 10/07/2022 COMPREHENSIVE METABOLIC PANEL (62181) CBC (INCLUDES DIFF/PLT) (6399) HEMOGLOBIN A1c (496) 10/07/2022 THYROID PANEL (7020) 10/07/2022 VITAMIN D,25-OH,TOTAL,IA [phone] Insurance Providers Payer Name Payer Address Payer Phone Subscriber Number Group Number Insured Name Patient Relationship to Insured Coverage Start Date Coverage End Date [employer] [facility] [address] [address] [place] [address] [id number] Pretty Broussard Self - patient is the insured Medical (General) History Medical History History ICD Code Hypothyroidism Allergies Rheumatoid Arthritis, juvenile onset, [facility] scoliosis Benign Breast Cysts Surgical History Surgery Date(Month/Year) c-sectionc x 2 D & C Tubal Cone biopsy Hospitalization History Reason Date(Month/Year) Childbirth - UTI
--- OUTSIDE RECORDS SUMMARY | 2024-12-23 18:58 | XMS_ITS | Clinical Summary ---
Author Organization [facility] Address [address] [place] [address] Care Team Providers Care Senior Process Analyst Name Role Phone Laura Meraz APRN Primary Care Provider [phone]- [phone] Allergies Active Allergy Reactions Criticality Noted Date Comments Codeine Itching,Rash,Unknown - Patient states they do not know rxn details Medium 11/27/2014 Penicillins Hives,Itching,Rash,U nknown - Patient states they do not know rxn details Medium 11/27/2014 Medications levocetirizine (Xyzal) 5 MG tablet Take 1 tablet (5 mg) by mouth 1 (one) time each day. Active fluticasone (Flonase) 50 MCG/ACT nasal spray USE 2 SPRAY(S) IN EACH NOSTRIL ONCE DAILY 2 Active montelukast (Singulair) 10 MG tablet Take 1 tablet (10 mg) by mouth 1 (one) time each day in the evening. 2 Active fluticasone (Flonase) 50 MCG/ACT nasal spray 7 Active montelukast (Singulair) 10 MG tablet 7 Active ergocalciferol 1.25 MG (47668 UT) capsule 3 Active Multiple Vitamin (MULTIVITAMINS PO) Take by mouth. Active sulfaSALAzine 500 MG PO EC tablet Take 1 tablet by mouth daily for 7 days, THEN 1 tablet 2 times a day for 14 days, THEN 2 tablets 2 times a day. Do not crush, chew, or split. 155 tablet 5 02/09/20 25 Active Tocilizumab (Actemra ACTPen) 162 MG/0.9ML solution auto-injectorI ndications:OLIVIA (juvenile idiopathic arthritis) ([facility]) Inject 0.9 mL (162 mg) under the skin every 14 (fourteen) days. 1.8 mL 2 5 12/20/19 25 Discontinued Active Problems Problem Noted Date Diagnosed Date COVID-19 11/18/2024 Allergic rhinitis 05/21/2024 Dry eye syndrome of unspecified lacrimal gland 1 07/21/2023 Vitamin D deficiency 11/27/2014 Encounters Date Type Department Care Team Description 12/20/2024 Telephone [facility] [address] [place] [phone] Yadira Lester, [facility] 12/19/2024 1:00 PM EDT Office Visit [facility] [address], [address] [place] [phone] Matt Taylor MD OLIVIA (juvenile idiopathic arthritis) ([facility]) (Primary Dx); High risk medication use; Liver enzyme elevation; Inflammatory polyarthropathy ([facility]) 12/19/2024 Travel 12/16/2024 Refill [facility] [address], [address] [place] [phone] Matt Taylor MD OLIVIA (juvenile idiopathic arthritis) ([facility]) 11/27/2024 Telephone [facility] [address], [address] [place] [phone] Matt Taylor MD 11/26/2024 Travel 11/18/2024 8:30 AM EDT Office Visit [facility] [address], [address] [place] [phone] Matt Taylor MD OLIVIA (juvenile idiopathic arthritis) ([facility]) (Primary Dx); High risk medication use; Inflammatory polyarthropathy ([facility]); Liver enzyme elevation; Health care maintenance 11/18/2024 Results Follow-Up [facility] [address], [address] [place] [phone] Matt Taylor MD 11/18/2024 Orders Only External Location [address] [place] [address] Provider, External 11/18/2024 Travel 11/11/2024 Travel 09/24/2024 Orders Only [facility] [address], [address] [place] [address] Provider, MD Titi from Last 3 Months Immunizations Immunization Administration Dates Next Due Influenza, injectable, quadrivalent, preservativ e free 05/18/2023,04/22/2018 Influenza, recombinant, quad rivalent, injectable, preservative free 05/04/2020 Influenza, seasonal, injectable, preservative fr ee 04/22/2018 Pneumococcal 20-gina Conj Vaccine 02/22/2024 Tdap 08/25/2016 Zoster, Recombinant 02/22/2024 Family History Medical History Relation Name Comments Diabetes Other 1 Conversions - Other Other 2 hypoglyc emia Hypothyroidism Other 3 Heart attack Other 4 Rheum arthritis Other 5 Conversions - Other Other 6 Irregula r heartbeat Relation Name Status Comments Other 1 Other 2 Other 3 Other 4 Other 5 Other 6 Social History Tobacco Use Types Packs/Day Years [...] Frequency of Binge Drinking Not on file 11/2024 PHQ-2A Answer Date Recorded Patient Health Questionnaire-2 Score 0 05/17/2023 Comments Unknown Sex and Gender Information Value Date Recorded Sex Assigned at Female 07/22/2021 6:52 AM EST Legal Sex Female 6:59 PM EDT Gender Identity Female 07/22/2021 6:52 AM EST Sexual Orientation Straight 07/22/2021 6: 52 AM EST Last Filed Vital Signs Vital Sign Reading Time Taken Comments Blood Pressure 114/79 11/18/2024 8:20 AM EDT Pulse 67 11/18/2024 8:20 AM EDT Temperature 36.4 C (97.5 F) 11/18/2024 8:20 AM EDT Respiratory Rate 16 11/18/2024 8:20 AM EDT Oxygen Saturation 95% 11/18/2024 8:20 AM EDT Inhaled Oxygen Concentration - - Weight 77.1 kg (170 lb) 12/19/2024 12:52 PM EDT Height 157.5 cm (5' 2 ) 12/19/2024 12:52 PM EDT Body Mass Index 31.09 12/19/2024 12:52 PM EDT Plan of Treatment Upcoming Encounters Date Type Department Care Team (Late st Contact Info) Description 04/22/2025 8:10 AM EDT Office Visit [facility] [address], [address] [place] [phone] Matt Taylor MD [address] [place] [phone] Health Maintenance Due Date Last Done Comments [facility]-HIV Screening 1984 [facility]-Infant/Child/Adol SDOH Screenings 1984 [facility]-Varicella Vaccines (1 of 2 - 13+ 2-dose series) 1997 HPV Vaccines (1 - 3-dose series) 11/11/1999 [facility]- SDOH Screenings 2002 [facility]-Adult SDOH Screenings 2002 [facility]-Hepatitis B Vaccines (1 of 3 - 19+ 3-dose series) 11/11/2003 [facility]-Pap Smear 2005 [facility]-Cervical Cancer Screening 2014 [facility]-HPV/Cotest 2014 NFT-MTLTD-58 Vaccine ( - season) 2024 [facility]-Influenza Vaccine (Season Ended) 2025 05/18/2023, 05/04/2020, 04/22/2018, Additional history exists [facility]-Depression Screening 12/19/2025 12/19/2024 [facility]-DTaP,Tdap,and Td Vaccines (2 - Td or Tdap) 08/25/2026 08/25/2016 [facility]-Zoster Vaccines (2 of 2) 2034 02/22/2024 [facility]-Pneumococcal Vaccine: Pediatrics (0 to 5 Years) and At-Risk Patients (6 to 49 Years) Aged Out 02/22/2024 No longer eligible based on patient's age to complete this topic [facility]-Hepatitis C Screening Completed 2024, 01/10/2020, 08/26/2016, Additional history exists [facility]-Obesity Intervention Completed 025, 11/18/2024, 02/22/2024, Additional history exists [facility]-HIB Vaccines Aged Out No longer e ligible based on patient's age to complete this topic [facility]-Hepatitis A Vaccines Aged Out No longer eligible based on patient's age to complete this topic [facility]-IPV Vaccines Aged Out No longer e ligible based on patient's age to complete this topic [facility]-Rotavirus Vaccines Aged Out No lo nger eligible based on patient's age to complete this topic Procedures Procedure Name Priority Date/Time Associated Diagnosis Comments SEDIMENTATION RATE, AUTOMATED Routine 11/18/2024 10:01 AM EDT OLIVIA (juvenile idiopathic arthritis) (CMS/HCC) High risk medication use Inflammatory polyarthropathy (CMS/HCC) Liver enzyme elevation C-REACTIVE PROTEIN, PLASMA Routine 11/18/2024 10:01 AM EDT OLIVIA (juvenile idiopathic arthritis) (CMS/HCC) High risk medication use Inflammatory polyarthropathy (CMS/HCC) Liver enzyme elevation CBC WITH AUTO DIFFERENTIAL Routine 11/18/2024 10:01 AM EDT OLIVIA (juvenile idiopathic arthritis) (CMS/HCC) High risk medication use Inflammatory polyarthropathy (CMS/HCC) Liver enzyme elevation HEPATIC FUNCTION PANEL Routine 11/18/2024 10:01 AM EDT OLIVIA (juvenile idiopathic arthritis) (CMS/HCC) High risk medication use Inflammatory polyarthropathy (CMS/HCC) Liver enzyme elevation CREATININE, PLASMA Routine 11/18/2024 10 :01 AM EDT OLIVIA (juvenile idiopathic arthritis) (CMS/HCC) High risk medication use Inflammatory polyarthropathy (CMS/HCC) Liver enzyme elevation QUANTIFERON TB GOLD PLUS Routine 11/18/2024 10:01 AM EDT OLIVIA (juvenile idiopathic arthritis) (CMS/HCC) High risk medication use Inflammatory polyarthropathy (CMS/HCC) Liver enzyme elevation HEPATITIS B SURFACE ANTIGEN Routine 11/18/2024 10:01 AM EDT OLIVIA (juvenile idiopathic arthritis) (CMS/HCC) High risk medication use Inflammatory polyarthropathy (CMS/HCC) Liver enzyme elevation HEPATITIS B CORE TOTAL AB (IGG AND IGM) Routine 11/18/2024 10:01 AM EDT OLIVIA (juvenile idiopathic arthritis) (CMS/HCC) High risk medication use Inflammatory polyarthropathy (CMS/HCC) Liver enzyme elevation HEPATITIS C ANTIBODY W/REFLEX TO HCV QUANT PCR Routine 11/18/2024 10:01 AM EDT OLIVIA (juvenile idiopathic arthritis) (CMS/HCC) High risk medication use Inflammatory polyarthropathy (CMS/HCC) Liver enzyme elevation LIPID PROFILE, PLASMA Routine 11/18/2024 10:01 AM EDT OLIVIA (juvenile idiopathic arthritis) (CMS/HCC) High risk medication use Inflammatory polyarthropathy (CMS/HCC) Liver enzyme elevation POC ULTRASOUND 11/18/2024 CBC WITH AUTO DIFFERENTIAL Routine 09/24/2024 3:23 PM EDT CREATININE, PLASMA Routine 09/24/2024 3: 23 PM EDT ALANINE AMINOTRANSFERASE, PLASMA Routine 09/24/2024 3:23 PM EDT ASPARTATE AMINOTRANSFERASE, PLASMA Routine 09/24/2024 3:23 PM EDT from Last 3 Months Results * Hepatitis C Antibody (11/18/2024 10:01 AM EDT) Hepatitis C Antibody Negative Negative 11/18/2024 2:02 PM EDT [facility] Blood Venous blood specimen / Unknown Venipuncture / Unknown 11/18/2024 10:01 AM EDT 11/18/2024 10:01 AM EDT us Matt Taylor MD LAB BLOOD ORDERABLES Final Re sult [facility] [address] [place] [address] * Hepatitis B Core Total Antibody IgG,IgM (11/18/2024 10:01 AM EDT) Hepatitis B Core Total Antibody IgG,IgM Negative Negative 11/18/2024 1:26 PM EDT [facility] Blood Venous blood specimen / Unknown Venipuncture / Unknown 11/18/2024 10:01 AM EDT 11/18/2024 10:01 AM EDT us Matt Taylor MD LAB BLOOD ORDERABLES Final Re sult Performing Organization Address City/[facility]/ZIP Co de Phone Number [facility] [address] [place] [address] * Quantiferon TB Gold Plus (11/18/2024 10:01 AM EDT) Quantiferon TB Gold Plus Result Negative Negative 11/19/2024 7:41 PM EDT [facility] TB Nill Value 0.0443 IU/mL 11/19/2024 7:41 PM EDT [facility] TB Antigen 1 0.0002 IU/mL 11/19/2024 7:41 PM EDT [facility] TB Antigen 2 0.0007 IU/mL 11/19/2024 7:41 PM EDT [facility] TB Mitogen 9.9557 IU/mL 11/19/2024 7:41 PM EDT [facility] Blood Venous blood specimen / Unknown Venipuncture / Unknown 11/18/2024 10:01 AM EDT 11/18/2024 10:01 AM EDT Narrative [facility] - 11/19/2024 7:41 PM EDT Responses to the Mitogen positive control and occasionally to TB antigen can be above the assay range. For calculation purposes: IFN-gamma values > 10 IU/mL are handled as 10 IU/mL. us Matt Taylor MD LAB BLOOD ORDERABLES Final Re sult Performing Organization Address City/[facility]/ZIP Co de Phone Number [facility] [address] [place] [address] * Creatinine, Plasma (11/18/2024 10:01 AM EDT) Only the most recent of2 resultswithin the time period is included. Creatinine, Plasma 0.64 0.60 - 1.10 mg/dL 11/18/2024 11:20 AM EDT [facility] eGFRcr 114.7 mL/min/1.7 3m*2 11/18/2024 11:20 AM EDT [facility] Comment:Reported eGFRcr in m L/min/1.73m2 is based the CKD-EPI 2020 equation that does not use a race coefficient. Blood Venous blood specimen / Unknown Venipuncture / Unknown 11/18/2024 10:01 AM EDT 11/18/2024 10:01 AM EDT us Matt Taylor MD LAB BLOOD ORDERABLES Final Re sult Performing Organization Address City/[facility]/[place] [address] * Hepatitis B Surface Antigen (11/18/2024 10:01 AM EDT) Hepatitis B Surf Antigen Negative Negative 11/18/2024 1:26 PM EDT [facility] Blood Venous blood specimen / Unknown Venipuncture / Unknown 11/18/2024 10:01 AM EDT 11/18/2024 10:01 AM EDT us Matt Taylor MD LAB BLOOD ORDERABLES Final Re sult Performing Organization Address City/[facility]/ZIP Co de Phone Number [facility] [address] [place] [address] * Sedimentation Rate, Automated (11/18/2024 10:01 AM EDT) Sedimentation Rate 3 <20 mm/hr 2024 11:10 AM EDT [facility] Blood Venous blood specimen / Unknown Venipuncture / Unknown 11/18/2024 10:01 AM EDT 11/18/2024 10:01 AM EDT us Matt Taylor MD LAB BLOOD ORDERABLES Final Re sult [facility] [address] [place] [address] * (ABNORMAL) CBC and Differential (11/18/2024 10:01 AM EDT) Only the most recent of2 resultswithin the time period is included. WBC Count 7.62 3.70 - 10.30 10*3/uL LAB HEMATOLOGY METHOD 11/18/2024 10:56 AM EDT [facility] RBC Count 5.15 3.90 - 5.20 10*6/uL LAB HEMATOLOGY METHOD 11/18/2024 10:56 AM EDT [facility] HGB 15.2 11.2 - 15.7 g/dL LAB HEMATOLOGY METHOD 11/18/2024 10:56 AM EDT [facility] HCT 45.6(H) 34.0 - 45.0 % LAB HEMATOLOGY METHOD 11/18/2024 10:56 AM EDT [facility] Platelet Count 306 155 - 369 10*3/uL LAB HEMATOLOGY METHOD 11/18/2024 10:56 AM EDT [facility] MCV 89 79 - 98 fL LAB HEMATOLOGY METHOD 11/18/2024 10:56 AM EDT [facility] MCH 29.5 26.0 - 32.0 pg LAB HEMATOLOGY METHOD 11/18/2024 10:56 AM EDT [facility] MCHC 33.3 30.7 - 35.5 g/dL LAB HEMATOLOGY METHOD 11/18/2024 10:56 AM EDT [facility] RDW 11.9 11.5 - 14.5 % LAB HEMATOLOGY METHOD 11/18/2024 10:56 AM EDT [facility] MPV 10.0 8.8 - 12.5 fL LAB HEMATOLOGY METHOD 11/18/2024 10:56 AM EDT [facility] nRBC 0.0 <=0.0 per 100 WBCs LAB HEMATOLOGY METHOD 11/18/2024 10:56 AM EDT [facility] Differential Type Automated LAB HEMATOLOGY METHOD 11/18/2024 10:56 AM EDT [facility] Neutrophils % 67 % LAB HEMATOLOGY METHOD 11/18/2024 10:56 AM EDT [facility] Lymphocytes % 20 % LAB HEMATOLOGY METHOD 11/18/2024 10:56 AM EDT [facility] Monocytes % 8 % LAB HEMATOLOGY METHOD 11/18/2024 10:56 AM EDT [facility] Eosinophils % 3 % LAB HEMATOLOGY METHOD 11/18/2024 10:56 AM EDT [facility] Basophils % 1 % LAB HEMATOLOGY METHOD 11/18/2024 10:56 AM EDT [facility] Immature Granulocytes % 1 % LAB HEMATOLOGY METHOD 11/18/2024 10:56 AM EDT [facility] Neutrophils Absolute 5.19 1.60 - 6.10 10*3/uL LAB HEMATOLOGY METHOD 11/18/2024 10:56 AM EDT [facility] Lymphocytes Absolute 1.55 1.20 - 3.90 10*3/uL LAB HEMATOLOGY METHOD 11/18/2024 10:56 AM EDT [facility] Monocytes Absolute 0.61 0.30 - 0.90 10*3/uL LAB HEMATOLOGY METHOD 11/18/2024 10:56 AM EDT [facility] Eosinophils Absolute 0.19 0.00 - 0.50 10*3/uL LAB HEMATOLOGY METHOD 11/18/2024 10:56 AM EDT [facility] Basophils Absolute 0.04 0.00 - 0.10 10*3/uL LAB HEMATOLOGY METHOD 11/18/2024 10:56 AM EDT [facility] Immature Granulocytes Absolute 0.04 0.00 - 0.06 10*3/uL LAB HEMATOLOGY METHOD 11/18/2024 10:56 AM EDT [facility] Blood Venous blood specimen / Unknown Venipuncture / Unknown 11/18/2024 10:01 AM EDT 11/18/2024 10:01 AM EDT [facility] - 11/18/2024 10:56 AM EDT Therapeutic decision making should be based on absolute values, rather than percentages. us Matt Taylor MD LAB BLOOD ORDERABLES Final Re sult Performing Organization Address [facility]/ZIP Co de Phone Number [facility] [address] [place] [address] * C-Reactive Protein, Plasma (11/18/2024 10:01 AM EDT) CRP, Plasma <3.0 <=8.0 mg/L 11/18/2024 11:20 AM EDT [facility] Blood Venous blood specimen / Unknown Venipuncture / Unknown 11/18/2024 10:01 AM EDT 11/18/2024 10:01 AM EDT Narrative [facility] - 11/18/2024 11:20 AM EDT This CRP test is appropriate for assessment of infection, systemic inflammation and/or tissue injury. To assess cardiovascular disease risk order high sensitivity CRP (CRPH). Matt Taylor MD LAB BLOOD ORDERABLES Final Re sult Performing Organization Address [facility]/[place] Co de Phone Number [facility] [address] [place] [address] * (ABNORMAL) Hepatic Function Panel (11/18/2024 10:01 AM EDT) Conjugated Bilirubin, Plasma <0.2 <=0.3 mg/dL 11/18/2024 11:20 AM EDT [facility] Alkaline Phosphatase, Plasma 65 35 - 104 U/L 11/18/2024 11:20 AM EDT [facility] Total Bilirubin, Plasma 0.5 0.2 - 1.1 mg/dL 11/18/2024 11:20 AM EDT [facility] Albumin, Plasma 4.4 3.5 - 5.2 g/dL 11/18/2024 11:20 AM EDT [facility] Total Protein 7.1 6.3 - 7.9 g/dL 11/18/2024 11:20 AM EDT [facility] ALT, Plasma 92(H) 10 - 35 U/L 11/18/2024 11:20 AM EDT [facility] AST, Plasma 51(H) 10 - 35 U/L 11/18/2024 11:20 AM EDT [facility] Blood Venous blood specimen / Unknown Venipuncture / Unknown 11/18/2024 10:01 AM EDT 11/18/2024 10:01 AM EDT us Matt Taylor MD LAB BLOOD ORDERABLES Final Re sult [facility] [address] [place] [address] * (ABNORMAL) Lipid panel (11/18/2024 10:01 AM EDT) Cholesterol, Plasma 165 <200 mg/dL 11/18/2024 11:20 AM EDT [facility] Comment: Cholesterol Reference Range (age >17 years): Desirable <200 mg/dL Borderline 200 to 239 mg/dL Undesirable >239 mg/dL HDL 37(L) >=50 mg/dL 11/18/2024 11:20 AM EDT [facility] Comment: HDL Cholesterol Reference Ranges (age >17 years): Female, acceptable > or = 50 mg/dL Male, acceptable > or = 40 mg/dL Triglycerides, Plasma 190(H) <150 mg/dL 11/18/2024 11:20 AM EDT [facility] Comment: Triglyceride Reference Range (age >17 years): Desirable: <150 mg/dL Borderline high: 150 to 199 mg/dL High: 200 to 499 mg/dL Very high: >499 mg/dL Increased risk of pancreatitis: >1000 mg/dL Cholesterol/HDL Ratio 4 11/18/2024 11:20 AM EDT [facility] LDL, Calculated 95 <100 mg/dL 11:20 AM EDT [facility] Comment: LDL Cholesterol Reference [...] 12 hours? Yes 11/18/2024 11:20 AM EDT [facility] Blood Venous blood specimen / Unknown Venipuncture / Unknown 11/18/2024 10:01 AM EDT 11/18/2024 10:01 AM EDT Result [facility] Matt Taylor MD LAB BLOOD ORDERABLES Final Re sult [facility] [address] [place] [address] * POC Imaging (11/18/2024) Anatomical Region Laterality Modality Pelvis Other 11/18/2024 Result [facility] External Provider IMG POINT OF CARE ULTRASOUND F inal Result * Aspartate Aminotransferase, Plasma (09/24/2024 3:23 PM EDT) Blood Venous blood specimen / Unknown Historical Provider LAB BLOOD ORDERABLES Kaley l Result * Alanine Aminotransferase, Plasma (09/24/2024 3:23 PM EDT) Blood Venous blood specimen / Unknown Historical Provider LAB BLOOD ORDERABLES Kaley l Result from Last [address] [place] [address] [place] [address] [facility] MED[facility] Care Teams Senior Process Analyst Relationship Specialty Start Date End Date Laura Meraz APRN [address] [place] [address] PCP - General 02/22/24
--- OUTSIDE RECORDS SUMMARY | 2024-12-23 18:58 | XMS_ITS | Encounter Summary ---
Author Organization [facility] Address [address] [id number] Care Team Providers Care Senior Data Developer Name Role Phone Laura Meraz APRN Primary Care Provider +1- [phone] Encounter Details Date Type Department Care Team (Latest Contact Info) Description 12/19/2024 Travel Social History Tobacco Use Types Packs/Day Years [...] AM EST documented as of this encounter Functional Status * Over the [...] Reina Peterson documented as of this encounter Plan of Treatment Upcoming Encounters Date Type Department Care Team (Late st Contact Info) Description 04/22/2025 8:10 AM EDT Office Visit [facility] [address], [address] [place] [address] Matt Taylor MD [address] [place] [address] documented as of this encounter Visit Diagnoses Not on filedocumented in this encounter Additional Health Concerns Assessment Noted Time A fall risk assessment has been complete d for the patient 12/19/2024 12:55 PM EDT A Body Mass Index follow-up plan has been documented for the patient 12/19/2024 1:47 PM EDT documented as of this encounter Care Teams Senior Data Developer Relationship Specialty Start Date End Date Laura Meraz APRN [address] [place] [address] PCP - General 02/22/24 documented as of this encounter
--- OUTSIDE RECORDS SUMMARY | 2024-12-23 18:58 | XMS_ITS | Encounter Summary ---
Author Organization [facility] Address [address] [place] [address] Care Team Providers Care Evp Sales Name Role Phone Nicole Merazah Tip VINES Primary Care Provider +1- [phone] Encounter Details Date Type Department Care Team (Late st Contact Info) Description 12/20/2024 Telephone [facility] [address] [place] [address] Yadira Lester, [facility] Social History Tobacco Use Types Packs/Day Years [...] AM EST documented as of this encounter Plan of Treatment Upcoming Encounters Date Type Department Care Team (Late st Contact Info) Description 04/22/2025 8:10 AM EDT Office Visit [facility] [address], [address] [place] [address] Matt Taylor MD [address] [place] [address] documented as of this encounter Visit Diagnoses Not on filedocumented in this encounter Additional Health Concerns Assessment Noted Time A fall risk assessment has been complete d for the patient 12/19/2024 12:55 PM EDT A Body Mass Index follow-up plan has been documented for the patient 12/19/2024 1:47 PM EDT documented as of this encounter Care Teams Evp Sales Relationship Specialty Start Date End Date Laura Meraz APRN [address] [id number] PCP - General 02/22/24 documented as of this encounter
--- OUTSIDE RECORDS SUMMARY | 2024-12-23 18:59 | XMS_ITS | Encounter Summary ---
Author Organization [facility] Address [address] [place] [address] Care Team Providers Care Criminal Records Technician Name Role Phone Laura Meraz Tip VINES Primary Care Provider +1- [phone] Encounter Details Date Type Department Care Team (Latest Contact Info) Description 11/11/2024 Travel Social History Tobacco Use Types Packs/Day Years Used Date Smoking Tobacco: Former Cigarettes 1 - 06/17/2020 Smokeless Tobacco: Never Alcohol Use Standard Drinks/Week Comments No 0 (1 standard drink = 0.6 oz pur e alcohol) PHQ-2 Answer Date Recorded Patient Health Questionnaire-2 Score 0 02/22/2024 PHQ-2A Answer Date Recorded Patient Health Questionnaire-2 [...] Description 04/22/2025 8:10 AM EDT Office Visit [facility] [address] [place] [address] Matt Taylor MD [address] [place] [address] documented as of this encounter Visit Diagnoses Not on filedocumented in this encounter Additional Health Concerns Assessment Noted Time A fall risk assessment has been complete d for the patient 02/22/2024 2:50 PM EDT A Body Mass Index follow-up plan has been documented for the patient 02/22/2024 3:27 PM EDT documented as of this encounter Care Teams Criminal Records Technician Relationship Specialty Start Date End Date Laura Meraz APRN [address] [place] [address] PCP - General 02/22/24 documented as of this encounter
--- OUTSIDE RECORDS SUMMARY | 2024-12-23 18:59 | XMS_ITS | Encounter Summary ---
Author Organization Healthcare Address [address] [place] [address] Care Team Providers Care Tester Equipment Name Role Phone Nicole Merazah Tip VINES Primary Care Provider +1- [phone] Reason for Visit * Reason Onset Date Comments Med Refill 12/16/2024 Encounter Details Date Type Department Care Team (Late st Contact Info) Description 12/16/2024 Refill [facility] [address] [place] [address] Matt Taylor MD [address] [place] [address] OLIVIA (juvenile idiopathic arthritis) ([facility]) Social History Tobacco Use Types Packs/Day Years [...] as of this encounter Miscellaneous Notes * Telephone Encounter - Nancy Bay RN - 12/23/2024 10:50 AM EDT Provider discontinued Actemra at [facility] on 12/19/2024. * Telephone Encounter - Matt Taylor MD - 12/16/2024 2:15 PM EDT Need to call patient to discuss since her liber enzymes were elevated and she couldn't connect to her video last time. Can you please schedule video visit this December 19 at 11:30 am,. Can do video.Thanks * Progress Notes - Harmony Vaughn, PharmD - 12/16/2024 10:06 AM EDT Refill request does not meet protocol. Sending to clinic for review. Additional info: Stopping medication? documented in this encounter Plan of Treatment Upcoming Encounters Date Type Department Care Team (Late st Contact Info) Description 04/22/2025 8:10 AM EDT Office Visit [facility] Medicine [facility]ties [address] [place] [id number] Matt Taylor MD [address] [facility] [address] [place] [address] documented as of this encounter Visit Diagnoses Diagnosis OLIVIA (juvenile idiopathic arthritis) ([facility]) Other specified inflammatory polyarthropathies documented in this encounter Additional Health Concerns Assessment Noted Time A fall risk assessment has been complete d for the patient 11/18/2024 8:26 AM EDT A Body Mass Index follow-up plan has been documented for the patient 11/18/2024 2:17 PM EDT documented as of this encounter Care Teams Tester Equipment Relationship Specialty Start Date End Date Laura Meraz APRN [address] [place], [place] [id number] PCP - General 02/22/24 documented as of this encounter
--- OUTSIDE RECORDS SUMMARY | 2024-12-23 18:59 | XMS_ITS | Encounter Summary ---
Author Organization Healthcare Address [address] [id number] Care Team Providers Care Craft Coordinator Name Role Phone Nicole Merazah Tip VINES Primary Care Provider +1- [phone] Encounter Details Date Type Department Care Team (Late st Contact Info) Description 11/27/2024 Telephone [facility] [address], [address] [place] [address] Matt Taylor MD [address] [place] [address] Social History Tobacco Use Types Packs/Day Years [...] AM EST documented as of this encounter Miscellaneous Notes * Telephone Encounter - Mariana Boyce Q - 11/27/2024 3:56 PM EDT We have made multiple attempts to call patient about the TH visit today.. shows she checked in and was online at 1 point but then disconnt.. I cancelled check in and the appt documented in this encounter Plan of Treatment Upcoming Encounters Date Type Department Care Team (Late st Contact Info) Description 04/22/2025 8:10 AM EDT Office Visit [facility] [address] [place] [address] Matt Taylor MD [address] [place] [address] documented as of this encounter Visit Diagnoses Not on filedocumented in this encounter Additional Health Concerns Assessment Noted Time A fall risk assessment has been complete d for the patient 11/18/2024 8:26 AM EDT A Body Mass Index follow-up plan has been documented for the patient 11/18/2024 2:17 PM EDT documented as of this encounter Care Teams Craft Coordinator Relationship Specialty Start Date End Date Laura Meraz APRN [address] [place] [address] PCP - General 02/22/24 documented as of this encounter
--- OUTSIDE RECORDS SUMMARY | 2024-12-23 18:59 | XMS_ITS | Encounter Summary ---
Author Organization Healthcare Address [address] [place] [address] Care Team Providers Care Animal Nutrition Teacher Name Role Phone Laura Meraz APRN Primary Care Provider +1- [phone] Encounter Details Date Type Department Care Team (Late st Contact Info) Description 11/18/2024 Results Follow-Up [facility] Medicine Specialties [address] [place] [address] Matt Taylor MD [address] [place] [address] Social History Tobacco Use Types [...] as of this encounter Miscellaneous Notes * Result Encounter Note - Matt Taylor MD - 11/18/2024 1:24 PM EDT Liver enzymes improved but are still up. We likely need to hold actemra and find and alternative treatment option.waiting on rest of labs to discuss. May benefit from liver specialist referral documented in this encounter Plan of Treatment Upcoming Encounters Date Type Department Care Team (Late st Contact Info) Description 04/22/2025 8:10 AM EDT Office Visit [facility] [address] [place] [address] Matt Taylor MD [address] [place] [address] documented as of this encounter Visit Diagnoses Not on filedocumented in this encounter Additional Health Concerns Assessment Noted Time A fall risk assessment has been complete d for the patient 11/18/2024 8:26 AM EDT A Body Mass Index follow-up plan has been documented for the patient 11/18/2024 2:17 PM EDT documented as of this encounter Care Teams Animal Nutrition Teacher Relationship Specialty Start Date End Date Laura Meraz APRN [address] [place] [address] PCP - General 02/22/24 documented as of this encounter
--- OUTSIDE RECORDS SUMMARY | 2024-12-23 18:59 | XMS_ITS | Encounter Summary ---
Author Organization [facility] Address [address] [place] [address] Care Team Providers Care Card Boxer Name Role Phone Laura Meraz APRN Primary Care Provider +1- [phone] Encounter Details Date Type Department Care Team (Late st Contact Info) Description 11/18/2024 Orders Only External Location [address] [place] [address] Provider, External Social History Tobacco Use Types Packs/Day Years [...] Ashia Velez documented as of this encounter Plan of Treatment Upcoming Encounters Date Type Department Care Team (Late st Contact Info) Description 04/22/2025 8:10 AM EDT Office Visit [place] [facility] [address], [address] [place] [address] Matt Taylor MD [address] [place] [address] documented as of this encounter Procedures Procedure Name Priority Date/Time Associated Diagnosis Comments POC ULTRASOUND 11/18/2024 documented in this encounter Results * POC Imaging (11/18/2024) Anatomical Region Laterality Modality Pelvis Other 11/18/2024 us External Provider IMG POINT OF CARE ULTRASOUND F inal Result documented in this encounter Visit Diagnoses Not on filedocumented in this encounter Additional Health Concerns Assessment Noted Time A fall risk assessment has been complete d for the patient 11/18/2024 8:26 AM EDT A Body Mass Index follow-up plan has been documented for the patient 11/18/2024 2:17 PM EDT documented as of this encounter Care Teams Card Boxer Relationship Specialty Start Date End Date Laura Meraz APRN [address] [id number] PCP - General 02/22/24 documented as of this encounter
--- OUTSIDE RECORDS SUMMARY | 2024-12-23 18:59 | XMS_ITS | Encounter Summary ---
Author Organization Address [address] [place] [address] Care Team Providers Care Plastic Printer Name Role Phone Laura Meraz Tip VINES Primary Care Provider +1- [phone] Encounter Details Date Type Department Care Team (Latest Contact Info) Description 11/26/2024 Travel Social History Tobacco Use Types Packs/Day [...] Description 04/22/2025 8:10 AM EDT Office Visit [facility] [address] [place] [address] Matt Taylor MD [address] [place] [address] documented as of this encounter Visit Diagnoses Not on filedocumented in this encounter Additional Health Concerns Assessment Noted Time A fall risk assessment has been complete d for the patient 11/18/2024 8:26 AM EDT A Body Mass Index follow-up plan has been documented for the patient 11/18/2024 2:17 PM EDT documented as of this encounter Care Teams Plastic Printer Relationship Specialty Start Date End Date Laura Meraz APRN [address] [place] [address] PCP - General 02/22/24 documented as of this encounter
--- OUTSIDE RECORDS SUMMARY | 2024-12-23 18:59 | XMS_ITS | Encounter Summary ---
Author Organization [facility] Address [address] [id number] Care Team Providers Care Business Process Modeler Name Role Phone Mariya Laura Tip VINES Primary Care Provider +1- [phone] Encounter Details Date Type Department Care Team (Latest Contact Info) Description 11/18/2024 Travel Social History Tobacco Use Types Packs/Day [...] Description 04/22/2025 8:10 AM EDT Office Visit [facility] [address] [place] [address] Matt Taylor MD [address] [place] [address] documented as of this encounter Visit Diagnoses Not on filedocumented in this encounter Additional Health Concerns Assessment Noted Time A fall risk assessment has been complete d for the patient 11/18/2024 8:26 AM EDT A Body Mass Index follow-up plan has been documented for the patient 11/18/2024 2:17 PM EDT documented as of this encounter Care Teams Business Process Modeler Relationship Specialty Start Date End Date Laura Meraz APRN [facility] [address] [address] PCP - General 02/22/24 documented as of this encounter
[2024-12-23 19:44] LABS: Erythrocyte Sedimentation Rate 15 mm/hr (0-20)
[2024-12-23 20:00] LABS: Alanine Aminotransferase 59 U/L (12-78)
[2024-12-23 20:44] LABS: C-Reactive Protein 13.4 mg/L (0-4)
== END 2024-12-23 23:59 | disposition home or self-care (01) ==
LOC: LAB 18:56
PROVIDERS: PCP Nurse Practitioner Family; Visit Provider Internal Medicine Rheumatology
DX: M08.80 Other juvenile arthritis, unspecified site (principal); Z79.899 Other long term (current) drug therapy; R74.8 Abnormal levels of other serum enzymes; M06.4 Inflammatory polyarthropathy
CPT/HCPCS: 36415; 84450; 84460; 85651; 86140